=== PATIENT | female | born 1990 | race Caucasian/White ===

== ENCOUNTER 2021-08-29 22:40 | Emergency (ER) | payer BC, SELFPAY ==
--- NOTE | ~2021-08-29 | XR_ITS ---
XR chest 2V DATE: 08/30/2021 00:09 INDICATION: Chest pain TECHNIQUE: PA and lateral views COMPARISON: None FINDINGS: Normal heart size. No hilar or mediastinal enlargement. No pulmonary infiltrate or consolid ation, pleural effusion or pulmonary vascular congestion or pneumothorax. IMPRESSION: Negative Reviewed, dictated and finalized at location A. IMPRESSION: Negative
--- NOTE | 2021-08-29 22:42 | ECG_ITS ---
Measurements Intervals [place] Rate: 62 P: 43 NH: 227 QRS: 60 QRSD: 112 T: 14 QT: 425 QTc: 434 Interpretive Statements SINUS RHYTHM WITH FIRST DEGREE AV BLOCK INTRAVENTRICULAR CONDUCTION DELAY BORDERLINE T WAVE ABNORMALITY- ANTERIOR LEADS BORDERLINE ECG Electronically Signed On 08-30-2021 6:21:18 CDT by Javier Braden D.O.
[2021-08-29 22:53] VITALS: BP 135/70; PULSE 68; RESP 17; TEMP 36.6; O2SAT 99
[2021-08-29 23:35] VITALS: PULSE 64; RESP 13; O2SAT 99
[2021-08-29 23:45] VITALS: PULSE 63; RESP 20; O2SAT 97
[2021-08-29] MEDS: ASPIRIN 81 MG CHEWABLE TABLET 324 MG PO (23:48)
--- NOTE | 2021-08-29 23:58 | ED.GENADULT ---
HPI - General Adult General Chief complaint: Unspecified <NATALIYA Huang Last Filed: 08/30/21 03:24> Stated complaint: pain to right shoulder <NATALIYA uHang Last Filed: 08/30/21 03:24> Time Seen by Provider: 08/29/21 23:33 <NATALIYA Huang Last Filed: 08/30/21 03:24> Source: patient <NATALIYA Huang Last Filed: 08/30/21 03:24> Mode of arrival: EMS <NATALIYA Huang Last Filed: 08/30/21 03:24> Limitations: no limitations <NATALIYA Huang Last Filed: 08/30/21 03:24> History of Present Illness HPI narrative: This is a 30-year-old female that presents to the emergency department for right shoulder pain that started just prior to arrival. 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 She was at work lifting heavy boxes when the pain started. She thought maybe she strained a muscle. Reports that the pain seemed pretty constant. It started to remind her of when she had her previous heart attack, although the pain at that time was in her left shoulder. Reports some mild chest tightness. 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 Denies shortness of breath. <NATALIYA Huang Last Filed: 08/30/21 03:24> Related Data Home medications: Home Medications Medication Instructions Recorded Confirmed digoxin 125 mcg (0.125 mg) tablet 125 mcg PO DAILY 08/29/21 diltiazem HCl 240 mg capsule,24 240 mg PO DAILY 08/29/21 hr,extended release flecainide 50 mg tablet 50 mg PO Q12H 08/29/21 lamotrigine 200 mg tablet 200 mg PO DAILY 08/29/21 (Lamictal) lithium carbonate 600 mg capsule 600 mg PO BID 08/29/21 olanzapine 20 mg tablet (Zyprexa) 25 mg PO DAILY 08/29/21 prazosin 5 mg capsule 7 mg PO QPM 08/29/21 <NATALIYA Huang Last Filed: 08/30/21 03:24> Allergies/adverse reactions: Allergies Allergy/AdvReac Type Severity Reaction Status Date / Time hydromorphone [From Dilaudid] Allergy Anaphylaxis Verified 08/29/21 22:57 morphine Allergy Anaphylaxis Verified 08/29/21 22:57 <Marie Melvin PA-C - Last Filed: 08/30/21 03:24> Review of Systems Review of Systems: CONSTITUTIONAL: Denies fever CARDIOVASCULAR: Reports chest pain. Denies edema. RESPIRATORY: Denies dyspnea. <Marie Melvin PA-C - Last Filed: 08/30/21 03:24> All systems reviewed & are unremarkable except as noted in HPI and below <Marie Melvin PA-C - Last Filed: 08/30/21 03:24> PMFSH Past Medical History Medical History: Medical History (Updated 08/30/21 @ 02:35 by Marie Melvin PA-C) History of bipolar disorder History of coronary artery disease <Marie Melvin PA-C - Last Filed: 08/30/21 03:24> Social History Social History: Social History (Updated 08/30/21 @ 00:03 by Marie Melvin PA-C) Smoking status: Never smoker <Marie Melvin PA-C - Last Filed: 08/30/21 03:24> Exam Narrative: GENERAL: Well-appearing, well-nourished, and in no acute distress. HEAD: Normocephalic, atraumatic. EYES: EOMI. CHEST: Clear to auscultation. No respiratory distress. No wheezes rales or rhonchi HEART: Regular rate and rhythm. No murmur heard. Normal peripheral pulses. EXTREMITIES: Normal range of motion. No edema. SKIN: Warm, dry, no rash. NEURO: No focal deficits. Alert and oriented x3. PSYCH: Normal mood and affect <Marie Melvin PA-C - Last Filed: 08/30/21 03:24> Course ADVANCED PRACTICE NURSE/PA Physician Supervision For this patient encounter, I reviewed the ADVANCED PRACTICE NURSE or PA documentation, treatment plan, and medical decision making <Austin Mueller MD - Last Filed: 08/30/21 04:44> Vital Signs Vital signs: Vital Signs Temperature 97.9 F 08/29/21 22:53 Pulse Rate 68 08/29/21 22:53 Respiratory Rate 17 08/29/21 22:53 Blood Pressure 135/70 08/29/21 22:53 Pulse Oximetry 99 08/29/21 22:53 Oxygen Delivery Room Air 08/29/21 22:53 Temperature 97.9 F 08/29/21 22:53 Pulse Rate 67 08/30/21 03:38 Respirator
[2021-08-30] VITALS (17 sets, daily range): BP systolic 118–144; BP diastolic 59–78; PULSE 60–67; RESP 15–21; O2SAT 96–100
[2021-08-30 00:28] LABS: Basophils Absolute Auto 0.1 K/mm3 (0.0-0.1); Basophils Percent Auto 0.8 % (0.2-1.2); Eosinophils Absolute Auto 0.3 K/mm3 (0-0.3); Eosinophils Percent Auto 2.1 % (0-4.4); Hematocrit 37.5 % (37.0-47.0); Hemoglobin 11.7 g/dL (12.0-15.0); Immature Granulocyte Absolute 0.03 K/mm3 (0.00-0.031); Immature Granulocyte Percent A 0.2 % (0-0.5); Lymphocytes Absolute Auto 3.44 K/mm3 (0.9-3.2); Lymphocytes Percent Auto 25.2 % (18.3-44.2); Mean Corpuscular HGB Conc 31.2 g/dl (32-36); Mean Corpuscular Volume 86.6 fl (80-100); Mean Platelet Volume 9.4 fl (7.4-10.4); Monocytes Absolute Auto 0.8 K/mm3 (0.1-0.6); Monocytes Percent Auto 5.6 % (2.6-8.5); Neutrophils Percent Auto 66.1 % (45.5-73.1); Platelet Count Result 391 k/mm3 (150-375); Red Blood Count 4.33 M/mm3 (4.2-5.4); Red Cell Distribution Width 14.2 % (11.5-14.5); White Blood Count 13.7 K/mm3 (4.5-10.0)
[2021-08-30 00:37] LABS: Alanine Aminotransferase 10 U/L (6-35); Albumin Level 4.3 g/dL (3.5-5.1); Alkaline Phosphatase 66 U/L (38-126); Anion Gap 4 mmol/L (8-16); Aspartate Amino Transferase 17 U/L (14-36); Bilirubin,Total 0.2 mg/dL (0.2-1.3); Blood Urea Nitrogen 7 mg/dL (7-17); Carbon Dioxide 26 mmol/L (22-30); Chloride 107 mmol/L (98-107); Estimated CRCL calculation 110 ml/min; Estimated Glomerular Filt Rate > 60; Glucose 86 mg/dL (65-110); Lipase 38 U/L (23-300); Potassium 3.6 mmol/L (3.4-5.0); Sodium 137 mmol/L (137-145)
[2021-08-30] MEDS: ACETAMINOPHEN 500 MG TABLET 1000 MG PO (00:40)
[2021-08-30 00:44] LABS: INR 1.2; Prothrombin Time 14.6 Seconds (11.1-14.7)
[2021-08-30 00:45] LABS: Partial Thromboplastin Time 34.8 SECONDS (22.3-36.8)
[2021-08-30 00:48] LABS: Troponin I < 0.012 ng/mL (0.000-0.034)
[2021-08-30 01:03] LABS: D Dimer 0.22 ug/mL (<0.48)
[2021-08-30 01:05] LABS: SARS-CoV-2 RNA PCR Negative
[2021-08-30 03:16] LABS: Troponin I < 0.012 ng/mL (0.000-0.034)
== END 2021-08-30 03:36 | disposition home or self-care (01) ==
PROVIDERS: Physician Assistant; Emergency Provider Emergency Medicine
DX: M25.511 Pain in right shoulder (principal); Z20.822 Contact with and (suspected) exposure to COVID-19; I25.10 Atherosclerotic heart disease of native coronary artery without angina pectoris; I25.2 Old myocardial infarction; F31.9 Bipolar disorder, unspecified; I44.0 Atrioventricular block, first degree; I45.9 Conduction disorder, unspecified; R94.31 Abnormal electrocardiogram [ECG] [EKG]
CPT/HCPCS: 36415; 71046; 80053; 83690; 84484; 85025; 85380; 85610; 85730; 93005; 99284; A9270; C9803; U0003; U0005

== ENCOUNTER 2024-05-13 14:32 | Emergency (ER) | payer OTHER, SELFPAY ==
[2024-05-13] VITALS (7 sets, daily range): BP systolic 123–156; BP diastolic 73–93; PULSE 73–91; RESP 12–16; TEMP 37.2; O2SAT 98–99
--- NOTE | ~2024-05-13 | CT_ITS ---
EXAMINATION: CT brain wo con DATE: 05/13/2024 16:02 INDICATION: headache . TECHNIQUE: Computed tomography (CT) of the head was performed without intravenous contrast. The mA wa s adjusted according to patient size. Iterative reconstruction technique was employed. The dose-lengt h product was 681.00 mGy-cm. COMPARISON: None. FINDINGS: No acute intracranial hemorrhage or extra-axial fluid collection. No hydrocephalus, mass, or herniation. No acute ischemic infarct. Unremarkable dural venous sinus attenuation. No acute osseous abnormality. Mild right mastoid fluid, the remaining aerated spaces are clear. Right posterior parietal MOBILE PHLEBOTOMIST shunt, tip terminating near the midline in the right lateral ventricle IMPRESSION: No acute intracranial process. Reviewed, dictated and finalized at location [facility].
--- OUTSIDE RECORDS SUMMARY | 2024-05-13 14:34 | XMS_ITS ---
Author Organization [employer] Address [address] [place] [address] Care Team Providers Care Ethyl Blender Name Role Phone Migration, Provider Unavailable Unavailable Allergies Allergen (clinical drug ingredient) Drug/Non Drug Allergy documented on EMR Reaction Allergy Type Onset Date Status acetaminophen Acetaminophen Unknown Drug Allergy Active oxycodone oxyCODONE HCl Unknown Drug Allergy Act kevyn Sulfanilamide GI problems Drug Allergy A ctive morphine Morphine Pulmonary toxicity Drug Allergy Active REASON FOR VISIT EMR-Nabil Medications Medication SIG (Take, Route, Frequency, Duration) Notes Start Date End Date Status Augmentin 500-125 MG take 1 tablet by or al route every 12 hours Oral Active Singulair 4 MG 1 tablet orally daily Oral Active ZyPREXA 20 MG take 1 tablet by ora l route every day Oral Active Premarin 1.25 MG take 2 tablets by or al route twice a day for 14 days Oral 11/11/2017 Active Provera 10 MG take 2 tablet by ora l route every day Oral 11/03/2017 Active Diflucan 150 MG take 1 tablet by ora l route once, may repeat in 72 hours Oral 08/06/2019 Active HYDROcodone-Acetaminophen 5-325 MG take 1 tablet by oral route every 6 hours as needed for pain Oral 01/04/2018 Active LaMICtal 200 MG take 1 tablet by ora l route every day Oral Active Nystatin 599674 UNIT/GM apply by topical route 4 times every day to the affected area(s) External 08/08/2019 Active Prazosin HCl 1 MG take 1 capsule by or al route qhs Oral Active Cymbalta 60 MG take 1 capsule by or al route every day Oral Active Cardizem 30 MG take 1 tablet by ora l route 2 times every day Oral Active clonazePAM 1 MG take 1 tablet by ora l route 3 times every day Oral Active Encounters Encounter Location Date Provider Diagnosis [facility]von[facility] [address] [place], [place] [id number] 11/27/2023 Provider Migration Plan Of Treatment No Information Progress Notes * Ashlee PAULDOB:1990 (33 yo F)Acc No.[id number]:11/27/2023 Patient: Ashlee RODGERS :1990 A ge:33 Y S ex:Female Address:[address] [place], [address] Subjective: * Chief Complaints: * E MR-Nabil * 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 C ytology result: N egative cytology. L ast Mammo: n ever. L ast DEXA: n ever. L ast WWE 2 [id number].? * OB History: Jesica freeman Authorization : : Date: 06/20/2007 [place] Weeks: 34 Sex: F Weight(lbs): 6lbs15 Delivery Type: Vaginal OB Problems: hemorrhage after labor/undiagnosed pre-eclampsia Problems: healthy Living: Yes . * Surgical History: * Hospitalization/Major Diagno stic Procedure: * Family History: M igrated Family History: : Cancer: M. aunt--cervical CA,cousins with dysplasia, Diabetes: none, REEL MAN Problems: mom prolapse 1994, Heart Disease: none, Hyperlipidemia: father, Hypertension: none, Father Living, Father Health: good, Mother Living, Mother Health: good, Siblings Living#: 3, Siblings #: 0. * Social History: M igrated Social History: M igrated Social History: Alchohol: no, Smoking: <10/day, Diet: healthy, Drugs: none, Emotional Problems: bipolar, Exercise: walks, Life Situation Chk: 0, PSE Abuse: feels safe at home. * Medications: T akingAugmentin 500-125 MG Tablet take 1 tablet by oral route every 12 hours Oral Cardizem 30 MG Tablet take 1 tablet by oral route 2 times every day Oral clonazePAM 1 MG Tablet take 1 tablet by oral route 3 times every day Oral Cymbalta 60 MG Capsule Delayed Release Particles take 1 capsule by oral route every day Oral Diflucan 150 MG Tablet take 1 tablet by oral route once, may repeat in 72 hours Oral HYDROcodone-Acetaminophen 5-325 MG Tablet take 1 tablet by oral route every 6 hours as needed for pain Oral LaMICtal 200 MG Tablet take 1 tablet by oral route every day Oral Nystatin 222455 UNIT/GM Cream apply by topical route 4 times every day to the affected area(s) External Prazosin HCl 1 MG Capsule take 1 capsule by oral route qhs Oral Premarin 1.25 MG Tablet take 2 tablets by oral route twice a day for 14 days Oral Provera 10 MG Tablet take 2 tablet by oral route every day Oral Singulair 4 MG Tablet Chewable 1 tablet orally daily Oral ZyPREXA 20 MG Tablet take 1 tablet by oral route every day Oral Taking Augmentin 500-125 MG Tablet take 1 tablet by oral route every 12 hours Oral Taking Cardizem 30 MG Tablet take 1 tablet by oral route 2 times every day Oral Taking clonazePAM 1 MG Tablet take 1 tablet by oral route 3 times every day Oral Taking Cymbalta 60 MG Capsule Delayed Release Particles take 1 capsule by oral route every day Oral Taking Diflucan 150 MG Tablet take 1 tablet by oral route once, may repeat in 72 hours Oral Taking HYDROcodone-Acetaminophen 5-325 MG Tablet take 1 tablet by oral route every 6 hours as needed for pain Oral Taking LaMICtal 200 MG Tablet take 1 tablet by oral route every day Oral Taking Nystatin [id number] UNIT/GM Cream apply by topical route 4 times every day to the affected area(s) External Taking Prazosin HCl 1 MG Capsule take 1 capsule by oral route qhs Oral Taking Premarin 1.25 MG Tablet take 2 tablets by oral route twice a day for 14 days Oral Taking Provera 10 MG Tablet take 2 tablet by oral route every day Oral Taking Singulair 4 MG Tablet Chewable 1 tablet orally daily Oral Taking ZyPREXA 20 MG Tablet take 1 tablet by oral route every day Oral * Allergies: A cetaminophen: Unknown - AllergyoxyCODONE HCl: Unknown - AllergySulfanilamide: GI problems - AllergyMorphine: Pulmonary toxicity - Allergy Objective: * Vitals: * Physical Examination: Assessment: Plan: * Treatment: * Procedure Codes: * * Date:
--- OUTSIDE RECORDS SUMMARY | 2024-05-13 14:34 | XMS_ITS | Clinical Summary ---
Author Organization [facility] Address [address] [place] [address] Care Team Providers Care Lumber Kiln Operator Name Role Phone Brando Maya MD Unavailable [phone] Van Sosa MD Unavailable [phone] Alexus Kirkland MD Unavailable Unavailable June Waldron MD Primary Care Provider [phone] Zuri García MD Unavailable [phone] Merlin Garibay MD Unavailable Source Comments [facility],non-owned Affiliates and Associated Physician Practices is amultiple site organization consisting of ambulatory clinics and hospital sitesin [place], [place], [place] and [place]. This disclosure is being madepursuant to the Care Everywhere program and may not contain all information available regarding this patient. Last updated 17.[facility] Allergies Active Allergy Reactions Criticality Noted Date Comments Hydromorphone Anaphylaxis High 07/01/2020 Metoprolol GI Discomfort 07/01/2020 Morphine Anaphylaxis High 07/01/2020 Oxycodone-Acetaminophen Other,Nausea and /or Vomiting Low 07/01/2020 Pt stated that she was told she could not have it. Papaver Anaphylaxis High 02/13/2023 Papaveraceae Anaphylaxis High 05/05/2023 Sulfamethoxazole W-Trimethoprim GI Discomfort 07/01/2020 Sulfanilamide GI Discomfort 04/16/2024 Medications * Be aware that medications may not be up to date on this document. Alwaysverify current medications with the patient. Medication Sig Dispensed Refills Start Date End Date Status OLANZapine (ZYPREXA) 20 MG tablet Take 1 (one) tablet by mouth once daily 1 Active lamoTRIgine (LAMICTAL) 200 MG tablet Take 1 (one) tablet by mouth once daily 1 Active prazosin (MINIPRESS) 5 MG capsule Take 1 (one) capsule by mouth once daily 1 Active dilTIAZem (CARDIZEM) 60 MG tablet Take 1 (one) tablet by mouth once daily as needed 30 tablet 4 1 Active OLANZapine (ZYPREXA) 5 MG tablet Take 1 (one) tablet by mouth once daily 1 Active prazosin (MINIPRESS) 1 MG capsuleIndication s:Migraine with status migrainosus, not intractable, unspecified migraine type Take 2 (two) capsules by mouth at bedtime With 5 mg tab for total 7 mg daily 1 Active buPROPion SR 12hr (WELLBUTRIN-SR) 150 MG tablet TAKE 1 TABLET BY MOUTH ONCE DAILY IN THE MORNING 2 Active Dilt-XR 240 MG capsule TAKE 1 CAPSULE BY MOUTH ONCE DAILY IN THE MORNING. APPOINTMENT REQUIRED FOR FUTURE REFILLS 90 capsule 3 2 Active tiZANidine (Zanaflex) 4 MG tabletIndications :Migraine with status migrainosus, not intractable, unspecified migraine type TAKE 1 TABLET BY MOUTH EVERY 8 HOURS NEEDED FOR MUSCLE SPASM 90 tablet 3 Active Additional Information Patient not taking.Reported on 06/20/2023 propranolol (Inderal) 20 MG tabletIndications :Migraine with status migrainosus, not intractable, unspecified migraine type TAKE 1 TABLET BY MOUTH TWICE DAILY FOR MIGRAINE HEADACHES 60 tablet 3 Active Additional Information Patient not taking.Reported on 06/20/2023 pantoprazole EC (Protonix) 40 MG tabletIndications :Gastroesophageal Reflux Disease Take 1 (one) tablet by mouth daily before breakfast Reasons: Gastroesophageal Reflux Disease 30 tablet 4 3 Active acetaZOLAMIDE (Diamox) 250 MG tablet Take 4 (four) tablets by mouth 2 times daily 3 Active amphetamine-dextr oamphetamine (Adderall) 20 MG tablet Take 1 (one) tablet by mouth 2 times daily Active folic acid (Folvite) 1 MG tablet Take 1 (one) tablet by mouth once daily 3 Active famotidine (Pepcid) 40 MG tablet Take 1 (one) tablet by mouth 2 times daily Active topiramate (Topamax) 50 MG tablet Take 1 (one) tablet by mouth 2 times daily 3 Active vitamin D, ergocalciferol, (Drisdol) 1.25 MG (28044 UT) capsuleIndication s:Vitamin D deficiency Take 1 capsule by mouth once a week 12 capsule 4 Active haloperidol (Haldol) 5 MG tablet TAKE 1 TABLET BY MOUTH TWICE DAILY FOR 9 DAYS 4 Active fluticasone propionate (Flonase) 50 MCG/ACT nasal spray [place] 2 (two) sprays into each nostril once daily 16 g 4 Active ofloxacin (Floxin) 0.3 % otic solution Instill 5 (five) drops into both ears 2 times daily 5 mL 4 Active cyanocobalamin (Vitamin B-12) 500 MCG tablet Take 1 tablet by mouth once daily 90 tablet 1 4 Active fluconazole (Diflucan) 150 MG tabletIndications :Vaginal yeast infection Take two tablets by moutn once 2 tablet 4 Active dicyclomine (Bentyl) 20 MG tabletIndications :Abdominal Cramps Take 1 (one) tablet by mouth 4 times daily as needed Reasons: Cramping Pain in the Abdomen 120 tablet 1 4 Active pregabalin (Lyrica) 75 MG capsule Take 1 (one) capsule by mouth 2 times daily 60 capsule 5 Active lithium carbonate (Eskalith) 300 MG capsule TAKE ONE CAPSULE BY MOUTH AT 8 AM AND ONE AT 2PM DIRECTED 5 Active amoxicillin-clavu lanate (Augmentin) 500-125 MG tablet take 1 tablet by oral route every 12 hours Oral Active clonazePAM (KlonoPIN) 1 MG tablet take 1 tablet by oral route 3 times every day Oral Active montelukast (Singulair) 4 MG chew tablet 1 tablet orally daily Oral Active nitrofurantoin monohyd macro crystals (Macrobid) 100 MG capsule TAKE 1 CAPSULE BY MOUTH TWICE DAILY WITH MORNING MEAL AND WITH EVENING MEAL 4 Active ondansetron, disintegrating, (Zofran ODT) 4 MG tablet Take 1 (one) tablet by mouth every 8 hours as needed 5 Active prochlorperazine (Compazine) 10 MG tablet Take 1 (one) tablet by mouth every 6 hours as needed 5 Active traZODone (Desyrel) 50 MG tablet TAKE 1/2 TO 1 (ONE-HALF TO ONE) TABLET BY MOUTH AT BEDTIME NEEDED FOR 30 DAYS 5 Active docusate sodium (Colace) 100 MG capsule Take 1 (one) capsule by mouth 2 times daily 5 Active LORazepam (Ativan) 0.5 MG tablet TAKE 1 TABLET BY MOUTH THREE TIMES DAILY NEEDED FOR 30 DAYS 5 Active haloperidol (Haldol) 20 MG tablet Take 1 (one) tablet by mouth at bedtime 5 Active flecainide (Tambocor) 50 MG tabletIndications :Paroxysmal atrial fibrillation (HCC) Take 1 (one) tablet by mouth once daily 90 tablet 3 5 Active digoxin (Lanoxin) 0.125 MG tabletIndications :PAF (paroxysmal atrial fibrillation) (HCC) Take 1 (one) tablet by mouth once daily PLEASE MAKE APPOINTMENT FOR FUTURE REFILLS 90 tablet 3 5 Active lithium CR (ESKALITH CR) 450 MG tablet Take 600 mg by mouth every 12 hours 04/16/19 Discontinu ed(List Clean-Up) LORazepam (ATIVAN) 0.5 MG tablet Take 1 (one) tablet by mouth 2 times daily as needed 2 04/16/19 Discontinu ed(List Clean-Up) DULoxetine HCl 40 MG Take 1 capsule by mouth once daily 4 04/16/19 Discontinu ed(List Clean-Up) haloperidol (Haldol) 10 MG tablet Take 1 (one) tablet by mouth once daily 4 05/02/19 25 Discontinu ed(List Clean-Up) digoxin (Lanoxin) 0.125 MG tabletIndications :PAF (paroxysmal atrial fibrillation) (HCC) Take 1 (one) tablet by mouth once daily PLEASE MAKE APPOINTMENT FOR FUTURE REFILLS 30 tablet 2 4 05/02/19 25 Discontinu ed(Reorder ) flecainide (Tambocor) 50 MG tabletIndications :Paroxysmal atrial fibrillation (HCC) Take 1 (one) tablet by mouth once daily 30 tablet 1 5 05/02/19 25 Discontinu ed(Reorder ) Active Problems Problem Noted Date Diagnosed Date Paroxysmal atrial fibrillation 05/01/2024 Bacterial folliculitis 06/20/2023 Otalgia, left ear 06/20/2023 Dysfunction of Eustachian tube, bilateral 2023 Papilledema associated with increased intracrani al pressure 12/16/2022 12/26/2022 S/P GRADING MACHINE OPERATOR shunt 12/12/2022 06/20/2023 Visual field defect of both eyes 11/24/2022 12/26/2022 SOB (shortness of breath) 03/25/2022 Vitamin D deficiency 03/23/2022 Essential hypertension 09/13/2021 Otosclerosis of both ears 10/20/2020 IIH (idiopathic intracranial hypertension) 10/20 BMI 39.0-39.9,adult 10/20/2020 Bipolar 1 disorder 10/20/2020 Family history of skin cancer 10/20/2020 Atypical mole 10/20/2020 Hearing loss of right ear 10/20/2020 Precordial chest pain 10/16/2020 Nicotine dependence 10/12/2020 Overview (12/25/2020): Last Assessment & Plan: Pt smokes 7 cigarettes a day Requires nicoderm patch for cravings in hospital Chest pain 10/12/2020 Overview (12/25/2020): Last Assessment & Plan: Sustained episode of tachycardia longer than baseline episode Pt currently comfortable without any CP Hirschsprung's disease 07/01/2020 H/O total hysterectomy 07/01/2020 History of loop recorder 07/01/2020 Helicobacter pylori gastrointestinal tract infec tion 10/08/2013 Nausea with vomiting 10/08/2013 Abdominal pain 10/08/2013 Resolved Problems Problem Noted Date Diagnosed Date Resolved Date Arrhythmia 10/12/2020 05/01/2024 Overview (12/25/2020): Last Assessment & Plan: Episodes of sustained tachycardia less frequent since ablation in 2019 Requires home medication flecainide, digoxin, diltiazem for maintenance Significant cardiac history with MIs starting at age 16 Bipolar 1 disorder 10/12/2020 Overview (12/25/2020): Last Assessment & Plan: Aline ER 450 mg Paroxysmal atrial fibrillation 07/01/2020 05/01/2024 CAD in [place] artery 07/01/2020 022 Constipation 10/08/2013 01/22/2021 Encounters Date Type Department Care Team Description 05/01/2024 11:45 AM DIRECTOR EQUIPMENT Office Visit [facility] [address] [place] [address] Brando Maya MD Paroxysmal atrial fibrillation (HCC) (Primary Dx); PAF (paroxysmal atrial fibrillation) (HCC); Essential hypertension 04/17/2024 Refill [facility] [address] [place] [address] Denise Cardona ROOM SERVICE BELLHOP-RESERVOIR CARETAKER Refill Request 04/10/2024 Telephone [facility] - Internal Medicine [address] [place] [address] [address] [place] [phone] June Waldron MD Medication Problem 03/30/2024 Refill [facility] [address] [place] [address] Denise Cardona, ROOM SERVICE BELLHOP-RESERVOIR CARETAKER Refill Request; Scheduling 03/01/2024 Telephone [facility] - Internal Medicine [address] [phone] June Waldron MD Scheduling from Last 3 Months Immunizations Name Administration Dates Next Due COVID PFIZER BIVALENT 12Y+ 30mcg/0.3ML 2 Covid Moderna primary monova lent 12+ yr 0.5mL 05/29/2020,05/01/2020 DTP 05/01/1992, 2,01/17/1991,11/16 HEP B VACCINE, PED/ADOL 08/15/2008,12/13/2007 HIB-HAEMOPHILUS INFLUENZAE B CONJUGATE VACCINE 01/21/1992,04/20/1991,01/17/1991,11/16 Human Papilloma Virus Chasity valent Vaccine 08/15/2008,10/07/2006 INFLUENZA VACCINE, CELL CULT URE, QUADR. (FLUCELVAX QUADRIVALENT; 6MO+) (CCIIV4) 11/24/2021 MENINGOCOCCAL CONJUGATE (MCV4P) 10/07/2006 MMR 01/21/1992 PNEUMOCOCCAL PCV20 CONJ VAC IM 04/16/2022 PNEUMOCOCCAL PPSV23 10/20/2020 POLIO OPV 05/01/1992, 2,01/17/1991,11/16 TD (AGE 7-ADULT) 09/08/2004 TDAP (7yrs+) 10/19/2021 Family History Medical History Relation Name Comments Cancer - Other Maternal Aunt cervical can cer Cancer - Colon Maternal Grandfather Hearing Loss - Congenital Maternal Grandfather None Known Maternal Grandmother Hearing Loss - Unspecified Mother Cancer - Breast Other great mat GM and great aunt Cancer - Colon Other Alcohol abuse Paternal Grandfather Cancer - Ovarian Paternal Grandmother Eating Disorders Sister 1 CAD (Coronary Artery Disease) Neg Hx CVA Neg Hx Relation Name Status Comments Father Alive Maternal Aunt Maternal Grandfather Alive Maternal Grandmother Alive Mother Alive Other Paternal Grandfather Paternal Grandmother Alive Sister 1 Alive Sister 2 Alive Sister 3 Alive Sister 4 Alive Social History Tobacco Use Types Packs/Day Years Used Date Smoking Tobacco: Every Day Cigarettes 0.3 10 Smokeless Tobacco: Never Tobacco Cessation:Ready to Q uit: Not Asked; Counseling Given: Not Answered Alcohol Use Standard Drinks/Week Comments Yes 0 (1 standard drink = 0.6 oz pur e alcohol) rare wine PHQ-2 Answer Date Recorded PHQ2 TOTAL SCORE 0 07/02/2022 Sex and Gender Information Value Date Recorded Sex Assigned at Not on file Gender Identity Not on file Sexual Orientation Not on file Last Filed Vital Signs Vital Sign Reading Time Taken Comments Blood Pressure 120/72 05/01/2024 11:41 AM DIRECTOR EQUIPMENT Pulse 84 05/01/2024 11:41 AM DIRECTOR EQUIPMENT Temperature 36.1 C (96.9 F) 06/20/2023 12:45 PM CDT Respiratory Rate - - Oxygen Saturation 99% 06/20/2023 12: 45 PM CDT Inhaled Oxygen Concentration - - Weight 108.1 kg (238 lb 6.4 oz) 025 11:41 AM DIRECTOR EQUIPMENT Height 165.1 cm (5' 5 ) 06/20/2023 12:4 5 PM CDT Body Mass Index 39.67 06/20/2023 12:45 PM CDT Plan of Treatment Upcoming Encounters Date Type Department Care Team (Late st Contact Info) Description 05/28/2024 11:00 AM CDT Office Visit [facility] - Internal Medicine [address] [place] [phone] Tiera Montes, ROOM SERVICE BELLHOP-RESERVOIR CARETAKER [address] [place] [phone] 05/01/2025 11:30 AM DIRECTOR EQUIPMENT Office Visit [facility] [address] [place] [address] Brando Maya MD [address] [place] [address] [facility] [address] [place] [address] Health Maintenance Due Date Last Done Comments HEPATITIS C SCREENING 09/07/2008 HEPATITIS B VACCINE (3 of 3 - 3-dose series) 10/10/2008 08/15/2008, 12/13/2007 HPV VACCINE (3 - 3-dose series) 11/07/2008 08/15/2008, 10/07/2006 COVID-19 VACCINE (4 - 2024-25 season) 2023 11/24/2021, 05/29/2020, 05/01/2020 INFLUENZA VACCINE (#1) 2023 11/24/2021 DTAP/TDAP/TD VACCINES (7 - Td or Tdap) 10/20/2031 10/19/2021, 09/08/2004, 05/01/1992, Additional history exists ZOSTER VACCINE (1 of 2) 2040 HIB VACCINE Completed 01/21/1992, 04/01, 01/17/1991, Additional history exists MENINGOCOCCAL GROUPS A/C/Y/W VACCINE Completed 10/07/2006 PNEUMOCOCCAL VACCINE Completed 04/16/2022, 10/21/19 21 HIV SCREENING Completed 11/22/2022 MENINGOCOCCAL (Group B) VACCINE SHARED DECISION-MAKING Aged Out No longer eligible based on patient's age to complete this topic PAP SMEAR Discontinued Procedures Procedure Name Priority Date/Time Associated Diagnosis Comments EKG 12-LEAD Routine 05/01/2024 1:03 PM DIRECTOR EQUIPMENT Paroxysmal atrial fibrillation (HCC) from Last 3 Months Care Teams Lumber Kiln Operator Relationship Specialty Start Date End Date June Waldron MD [address] [place] [address] PCP - General Internal Medicine 07/30/22 Brando Maya MD [address] [facility] [address] [place] [address] Cardiovascular Disease 07/01/20 Van Sosa MD [facility] [facility] [place] [address] [place] [address] Electrophysiology 07/14/20 Alexus Kirkland MD [facility] [facility] [place] [address] [place] [address] Obstetrics and Gynecology 07/14/20 Zuri García MD [address] [place] [address] Referring Physician Neurology 06/20/23 Merlin Garibay MD [address] [facility] [address] [place] [address] Neurological Surgery 06/20/23
--- OUTSIDE RECORDS SUMMARY | 2024-05-13 14:34 | XMS_ITS | Referral Summary ---
Author Organization [facility] Address [address] [place] [address] Care Team Providers Care Customer Services Manager Name Role Phone Brando Maya MD Unavailable [phone] June Waldron MD Primary Care Provider + Merlin Garibay MD Unavailable [phone] Jonna Schmitt OD Unavailable [phone] Adelaide Davies MD Unavailable Van Sosa MD Unavailable [phone] Suresh Lynn NP Unavailable [phone] Encounters Date Type Department Care Team Description 04/05/2024 Telephone [facility] Ophthalmology [address] [facility] [address] [place] [phone] Zuri García MD 03/29/2024 Telephone [facility] Ophthalmology [address] [facility] 6th [place] [address] James Mota MD PhD 03/28/2024 Telephone [facility] Ophthalmology [address] [facility] [address] [place] [address] Zuri García MD 03/27/2024 Telephone [facility] Ophthalmology [address] [place] [address] 1st [place] [address] Zuri García MD 03/27/2024 Telephone [facility] ([facility]) - [facility] ENT [address] [facility] 11th [place] [address] [place] [address] Dinah Harris MS 03/26/2024 Telephone [facility] Ophthalmology [facility] [address] [address] Zuri García MD 03/26/2024 2:10 PM [facility] Imaging Exam [facility] Ophthalmology [address] [place] [phone] 03/26/2024 2:30 PM [facility] Office Visit [facility] Ophthalmology [address] [place] [phone] Zuri García MD Optic atrophy of both eyes (Primary Dx); 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; 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; Idiopathic intracranial hypertension; S/P GIS INSTRUCTOR shunt; Rhinorrhea; Otorrhea, unspecified laterality 03/23/2024 Telephone [facility] Ophthalmology [facility] [place] [address] Zuri García MD Med Management 03/13/2024 Orders Only [facility] Ophthalmology [address] [place] [phone] Zuri aGrcía MD Papilledema due to raised intracranial pressure (Primary Dx); Idiopathic intracranial hypertension; 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; Optic atrophy of both eyes from Last 3 Months Allergies Active Allergy Reactions Criticality Noted Date Comments Hydromorphone Anaphylaxis High 11/21/2022 Opioids - Morphine Analogues Anaphylaxis,Seizures High Reaction: Anaphylaxis, Seizure, Oxycodone-Acetaminophen Anaphylaxis,Seizures High Reaction: Anaphylaxis, Seizure, Sulfamethoxazole-Trimet hoprim Diarrhea,Vomiting Low Reaction: Diarrhea, Vomiting, Medications lamoTRIgine (LaMICtal) 200 mg tablet Take 200 mg by mouth nightly Active LORazepam (ATIVAN) 0.5 mg tablet Take 0.5 mg by mouth 2 (two) times a day as needed 1 Active OLANZapine (ZyPREXA) 20 mg tablet Take by mouth nightly 1 Active OLANZapine (ZyPREXA) 5 mg tablet Take 5 mg by mouth nightly 1 Active prazosin (MINIPRESS) 2 mg capsule Take 2 mg by mouth nightly 1 Active prazosin (MINIPRESS) 5 mg capsule TAKE 1 CAPSULE BY MOUTH ONCE DAILY AT BEDTIME [address] (CYMBALTA) 60 mg capsule Take 1 capsule (60 mg total) by mouth daily 5 capsule 3 Active cyanocobalamin (Vitamin B-12) 500 mcg tablet Take 1 tablet (500 mcg total) by mouth daily 3 Active dicyclomine (BENTYL) 20 mg tablet Take 1 tablet (20 mg total) by mouth 2 (two) times a day 3 Active ergocalciferol (VITAMIN D) 50,000 unit capsule Take 1 capsule (50,000 Units total) by mouth once a week Active erythromycin (ILOTYCIN) ophthalmic ointment Apply 1 Application to right eye 3 (three) times a day 3 Active folic acid (FOLVITE) 1 mg tablet Take 1 tablet (1 mg total) by mouth 2 (two) times a day [address] (PROTONIX) 40 mg EC tablet Take 1 tablet (40 mg total) by mouth daily before breakfast 3 Active lithium 300 mg tablet/capsule Take 1 tablet/capsule (300 mg total) by mouth 2 (two) times a day with meals 60 tablet/capsu le 3 Active oxyCODONE (ROXICODONE) 5 mg immediate release tablet Take 0.5 tablets (2.5 mg total) by mouth every 8 (eight) hours as needed for pain for up to 20 doses 10 tablet 3 Active pregabalin (LYRICA) 75 mg capsuleIndicatio ns:Frequent headaches Take 1 capsule (75 mg total) by mouth 2 (two) times a day 60 capsule 5 4 Active acetaZOLAMIDE ER (DIAMOX SEQUAL) 500 mg capsuleIndicatio ns:Idiopathic intracranial hypertension,Pap illedema due to raised intracranial pressure Take 1 capsule (500 mg total) by mouth 2 (two) times a day 60 capsule 11 5 03/28/19 26 Active topiramate (TOPAMAX) 50 mg tabletIndication s:Idiopathic intracranial hypertension,Du quent headaches Take 1 tablet (50 mg total) by mouth 2 (two) times a day 60 tablet 2 5 Active Active Problems Problem Noted Date Diagnosed Date Idiopathic intracranial hypertension 12/13/2023 Assessment & Plan (12/13/2023 9:25 AM CDT): No active disc edema on exam or OCT today. Persistent headaches, had CT and LP a few days ago with no signs of shunt failure, OP 22. Discussed that symptom of worsened vision could be related to headaches, but no evidence of active IIH at this time. Will discuss with Dr. García and contact if any additional workup recommended prior to visit 12/26/23. Acute intractable headache, unspecified headache type 02/11/2023 Assessment & Plan (02/12/2023 11:45 AM [facility]): Patient presented with headache and L sided vision loss in the setting of idiopathic intracranial Htn with GIS INSTRUCTOR shunt (11/27/22), right eye blindness. Initially code stroke in the ED and neurology recommended NSGY and opthalmology c/s. NSGY & Ophth recommended LP to improve the pressure and to check cell count x2, protein, glucose, bacterial culture and save 1 tube - Migraine cocktail to control headache, such as compazine 10 mg q6h, Benadryl 25 mg PO, 1L IVF q8h PRN, Mg 2g BID PRN, Toradol 15 mg IV q6h PRN. More effective when given together. - Follow-up in the Neuro-Ophthalmology clinic as prior - Follow-up closely with [facility]GY at [facility] for potential revision of GIS INSTRUCTOR shunt - LP with opening pressure 26. CSF with protein 54, nucs 10, glucose 56. Stain with no PMNs, no organisms. - symptoms resolved following LP Vision loss 01/22/2023 Chest pain 10/12/2020 Assessment & Plan (10/12/2020 12:49 PM CDT): Sustained episode of tachycardia longer than baseline episode Pt currently comfortable without any CP Bipolar 1 disorder 10/12/2020 Assessment & Plan (02/12/2023 11:39 AM [facility]): Controlled - Continue home medications: Olanzapine , Lorazepam, [place], Duloxetine Assessment & Plan (10/12/2020 11:13 AM CDT): [place] ER 450 mg Arrhythmia 10/12/2020 Assessment & Plan (10/12/2020 12:48 PM CDT): Episodes of sustained tachycardia less frequent since ablation in 2019 Requires home medication flecainide, digoxin, diltiazem for maintenance Significant cardiac history with MIs starting at age 16 Nicotine dependence 10/12/2020 Assessment & Plan (10/12/2020 12:45 PM CDT): Pt smokes 7 cigarettes a day Requires nicoderm patch for cravings in hospital Abdominal pain 10/08/2013 Nausea with vomiting 10/08/2013 Constipation 10/08/2013 Helicobacter pylori gastrointestinal tract infec tion 10/08/2013 Immunizations Immunization Administration Dates Next Due Tdap 10/19/2021 Social History Tobacco Use Types Packs/Day Years Used Date Smoking Tobacco: Every Day Cigarettes 0.8 22.7 Started: 08/25/2001 Smokeless Tobacco: Never Tobacco Cessation:Ready to Q uit: Not Asked; Counseling Given: Not Answered Alcohol Use Standard Drinks/Week Comments Yes 0 (1 standard drink = 0.6 oz pur e alcohol) rare AUDIT-C Answer Date Recorded Q1: How often do you have a drink containing alc ohol? Never 12/26/2023 Average Number of Drinks Not on file 024 Frequency of Binge Drinking Not on file 11/29 Personal Safety Answer Date Recorded Have you ever been in or are you currently in a harmful physical or emotional relationship or is someone making you feel afraid or unsafe? Denies 02/11/2023 Comments No Sex and Gender Information Value Date Recorded Sex Assigned at Not on file Legal Sex Female 10:58 AM [facility] Gender Identity Not on file Sexual Orientation Not on file Last Filed Vital Signs Vital Sign Reading Time Taken Comments Blood Pressure 133/90 02/12/2023 7:57 AM [facility] Pulse 91 02/12/2023 7:57 AM [facility] Temperature 36.6 C (97.9 F) 02/12/2023 7:57 AM [facility] Respiratory Rate 18 02/12/2023 7:57 AM [facility] Oxygen Saturation 100% 02/12/2023 7:57 AM [facility] Inhaled Oxygen Concentration - - Weight 102 kg (224 lb 12.8 oz) 02/11/2023 10:10 AM [facility] Height 162.6 cm (5' 4.02 ) 02/11/2023 10:[address] Body Mass Index 38.57 02/11/2023 10:10 AM [facility] Plan of Treatment Not on file Medical Devices Implanted Type Area Bond Manager Device Identifier Shelf Expiration Date Model / Serial / Lot Implantable Loop Recorder [employer] Implantable Loop Recorder Chest Stratta Valve Brain Procedures Procedure Name Priority Date/Time Associated Diagnosis Comments OCT, OPTIC NERVE - OU - BOTH EYES Routine 03/26/2024 2:25 PM [facility] Idiopathic intracranial hypertension 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 Average RNFL thickness 55 micrometers. Left Eye Reliability was good. Average RNFL thickness 52 micrometers. Notes RNFL thinning OU (Performed on [employer] OCT) Zuri García MD OPHTH TOMOGRAPHY Final Resu lt * OCT, Retina - OU - Both Eyes (03/26/2024 2:25 PM [facility]) Anatomical Region Laterality Modality Head Other Narrative 03/26/2024 3:51 PM [facility] Right Eye Findings include normal observations. Left Eye Findings include normal observations. Notes Diffuse ganglion cell complex thinning OU, with mean GCC thickness: 44 microns OD, 50 microns OS (on [employer] OCT) Zuri García MD OPHTH TOMOGRAPHY Final Resu lt from Last 3 Months Insurance [employer] OOS [employer] [place] Advance Directives For more information, please contact: [phone] * Full Code (Latest Code Status on File) Date Activated Date Inactivated Comments 02/11/2023 10:47 AM 02/12/2023 7:36 PM * Full Code Date Activated Date Inactivated Comments 01/22/2023 11:26 PM 01/26/2023 7:34 PM Care Teams Customer Services Manager Relationship Specialty Start Date End Date June Waldron MD [address] [place] [address] PCP - General 10/19/21 Brando Maya MD [address] [place] [address] Referring Physician Cardiovascular Disease 10/13/20 Merlin Garibay MD [address] [place] [address] Surgeon Neurosurgery 12/11/22 Jonna Schmitt OD [address] [place] [address] Primary Eye Care Provider Optometry 12/11/22 Adelaide Davies MD [address] [place] [address] Surgeon Ophthalmic Plastic and Reconstructive Surgery 12/24/22 Van Sosa MD [address] [facility] [address] [place] [address] It Risk [employer] Assurance Senior Manager Cardiology 12/28/22 Suresh Lynn NP [address] [facility] [place] [address] [place] [address] Nurse Practitioner Psychiatry 04/05/23
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
--- OUTSIDE RECORDS SUMMARY | 2024-05-13 14:34 | XMS_ITS | Clinical Summary ---
Author Organization [facility] Address [address] [place] [address] Care Team Providers Care Instructor Physical Name Role Phone Brando Maya MD Unavailable June Waldron MD Primary Care Provider + Merlin Garibay MD Unavailable Jonna Schmitt OD Unavailable [phone] Adelaide Davies MD Unavailable Van Sosa MD Unavailable Suresh Lynn NP Unavailable Allergies Active Allergy Reactions Criticality Noted Date Comments Hydromorphone Anaphylaxis High 11/21/2022 Opioids - Morphine Analogues Anaphylaxis,Seizures High Reaction: Anaphylaxis, Seizure, Oxycodone-Acetaminophen Anaphylaxis,Seizures High Reaction: Anaphylaxis, Seizure, Sulfamethoxazole-Trimet hoprim Diarrhea,Vomiting Low Reaction: Diarrhea, Vomiting, Medications lamoTRIgine (LaMICtal) 200 mg tablet Take 200 mg by mouth nightly 1 Active LORazepam (ATIVAN) 0.5 mg tablet Take [...] 02/11/2023 Assessment & Plan (02/12/2023 11:45 AM [employer]): Patient presented with headache and L sided vision loss in the setting of idiopathic intracranial Htn with PAINTER HAND shunt (11/27/22), right eye blindness. Initially code [...] prior - Follow-up closely with NSGY at [facility] for potential revision of PAINTER HAND shunt - LP with opening pressure 26. CSF with protein 54, nucs 10, glucose 56. Stain with no PMNs, no organisms. - symptoms resolved following LP Vision loss 01/22/2023 Chest pain 10/12/2020 Assessment & Plan (10/12/2020 12:49 PM CDT): Sustained episode of tachycardia longer than baseline episode Pt currently comfortable without any CP Bipolar 1 disorder 10/12/2020 Assessment & Plan (02/12/2023 11:39 AM [employer]): Controlled - Continue home medications: Olanzapine , Lorazepam, [place], Duloxetine Assessment & Plan (10/12/2020 11:13 AM CDT): [place] ER 450 mg Arrhythmia 10/12/2020 Assessment & [...] Helicobacter pylori gastrointestinal tract infec tion 10/08/2013 Encounters Date Type Department Care Team Description 04/05/2024 Telephone [facility] [address] [place] [phone] Zuri García MD 03/29/2024 Telephone [facility] [address] [place] [phone] James Mota MD PhD 03/28/2024 Telephone [facility] [address] [place] [address] Zuri García MD 03/27/2024 Telephone [facility] [address] [place] [address] [address] [place] [address] Zuri García MD 03/27/2024 Telephone [facility] - [address] [facility] 11th [place] [address] [place] [address] Dinah Hraris, 03/26/2024 2:30 PM [employer] Office Visit [facility] [address] [facility] [address] [place] [phone] Zuri García MD Optic atrophy of both eyes (Primary Dx); 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; 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; Idiopathic intracranial hypertension; S/P PAINTER HAND shunt; Rhinorrhea; Otorrhea, unspecified laterality 03/26/2024 2:10 PM [employer] Imaging Exam [facility] [address] [place] [phone] 03/26/2024 Telephone [facility] [address] [place] [phone] Zuri García MD 03/23/2024 Telephone [facility] [place] [address] Zuri García MD Med Management 03/13/2024 Orders Only [facility] [address] [place] [phone] Zuri García MD Papilledema due to raised intracranial pressure (Primary Dx); Idiopathic intracranial hypertension; 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; Optic atrophy of both eyes from Last 3 Months Immunizations Immunization Administration Dates Next Due Tdap 10/19/2021 Surgical History Surgery Date Site/Laterality Comments ID [id number] Appendectomy - (Added by Conv) LUMBAR PUNCTURE WO INJECTION , DIAGNOSTIC 12/13/2022 N/A LUMBAR PUNCTURE WO INJECTION , DIAGNOSTIC 11/26/2022 N/A LUMBAR PUNCTURE WO INJECTION , THERAPEUTIC 02/11/2023 N/A LUMBAR PUNCTURE WO INJECTION , DIAGNOSTIC 05/06/2023 N/A LUMBAR PUNCTURE WO INJECTION , DIAGNOSTIC 12/10/2023 N/A Family History Medical History Relation Name Comments Mental illness Father Family histor y of mental disorder - (Added by Conv) Mental illness Mother Family histor y of mental disorder - (Added by Conv) Hypertension Paternal Grandmother Family history of hypertension - (Added by TW Conv) Colon cancer Paternal Great-Grandfather F amily history of colon cancer - (Added by TW Conv) Heart attack Paternal Great-Grandmother F amily history of myocardial infarction - (Added by TW Conv) Hypertension Paternal Great-Grandmother F amily history of hypertension - (Added by TW Conv) Stroke Paternal Great-Grandmother F amily history of cerebrovascular accident - (Added by TW Conv) Mental illness Sister Family histor y of mental disorder - (Added by TW Conv) Relation Name Status Comments Father Mother Paternal Grandmother Paternal Great-Grandfather Paternal Great-Grandmother Sister Social History Tobacco Use Types Packs/Day Years [...] on file Legal Sex Female 10:58 AM [employer] Gender Identity Not on file Sexual Orientation Not on file Obstetrics History Last Filed Vital Signs Vital Sign Reading Time Taken Comments Blood Pressure 133/90 02/12/2023 7:57 AM [employer] Pulse 91 02/12/2023 7:57 AM [employer] Temperature 36.6 C (97.9 F) 02/12/2023 7:57 AM [employer] Respiratory Rate 18 02/12/2023 7:57 AM [employer] Oxygen Saturation 100% 02/12/2023 7:57 AM [employer] Inhaled Oxygen Concentration - - Weight 102 kg (224 lb 12.8 oz) 02/11/2023 10:10 AM [employer] Height 162.6 cm (5' 4.02 ) 02/11/2023 10:[address] Body Mass Index 38.57 02/11/2023 10:10 AM [employer] Plan of Treatment Health Maintenance Due Date Last Done Comments Depression Screening 1990 Hepatitis C Screening 1990 Varicella Vaccines (1 of 2 - 13+ 2-dose series) 09/13/2003 Regular Well Visit/Exam 18-64 2008 HPV Vaccines (3 - 3-dose series) 11/07/2008 08/16/19 09, 10/07/2006 Pneumococcal vaccine <65 (2 of 2 - PCV) 10/20/2021 10/20/2020 Covid-19 Vaccine (3 - 2023-2 5 season) 2023 05/29/2020, 05/01/2020 Influenza Vaccine (#1) 2023 11/24/2021 DTaP/Tdap/Td Vaccine (6 - Td or Tdap) 10/20/2031 10/19/2021, 09/08/2004, 05/01/1992, Additional history exists Hepatitis B Screening Completed 08/15/2008, 008 Medical Devices Implanted Type Area Front Office Spec Device Identifier Shelf Expiration Date Model / Serial / Lot Implantable Loop Recorder [employer] Implantable Loop Recorder Chest Stratta Valve Brain Procedures Procedure Name Priority Date/Time Associated Diagnosis Comments OCT, OPTIC NERVE - OU - BOTH EYES Routine 03/26/2024 2:25 PM [employer] Idiopathic intracranial hypertension 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 Average RNFL thickness 55 micrometers. Left Eye Reliability was good. Average RNFL thickness 52 micrometers. Notes RNFL thinning OU (Performed on [employer]rus OCT) Zuri García MD OPHTH TOMOGRAPHY Final Resu lt * OCT, Retina - OU - Both Eyes (03/26/2024 2:25 PM [employer]) Anatomical Region Laterality Modality Head Other Narrative 03/26/2024 3:51 PM [employer] Right Eye Findings include normal observations. Left Eye Findings include normal observations. Notes Diffuse ganglion cell complex thinning OU, with mean GCC thickness: 44 microns OD, 50 microns OS (on [employer] Cirrus OCT) Zuri García MD OPHTH TOMOGRAPHY Final Resu lt from Last 3 Months Insurance lmbang OOS lmbang OOS [facility] [place] Advance Directives For more information, please contact: [phone] * Full Code (Latest Code Status on File) Date Activated Date Inactivated Comments 02/11/2023 10:47 AM 02/12/2023 7:36 PM * Full Code Date Activated Date Inactivated Comments 01/22/2023 11:26 PM 01/26/2023 7:34 PM Care Teams Instructor Physical Relationship Specialty Start Date End Date June Waldron MD [address] [place] [address] PCP - General 10/19/21 Brando Maya MD [address] [place] [address] Referring Physician Cardiovascular Disease 10/13/20 Merlin Garibay MD [address] [place] [address] Surgeon Neurosurgery 12/11/22 Jonna Schmitt OD [address] [place] [address] Primary Eye Care Provider Optometry 12/11/22 Adelaide Davies MD [address] [place] [address] Surgeon Ophthalmic Plastic and Reconstructive Surgery 12/24/22 Van Sosa MD [address] [facility] [address] [place] [address] Director Of Agronomy Cardiology 12/28/22 Suresh Lynn NP [address] [facility] [address] [place] [address] Nurse Practitioner Psychiatry 04/05/23
--- OUTSIDE RECORDS SUMMARY | 2024-05-13 14:34 | XMS_ITS ---
Author Organization [facility] Address [address] [place] [address] Care Team Providers Care Stockroom Attendant Name Role Phone Suresh Fritz Primary Care Provider [phone] Yen Mace [phone] REASON FOR VISIT CRU Admit Social History Sex Assigned At : Social History Observation Description Sex Assigned At Female PRAPARE Question Answer Notes Date Completed/Updated: 05/11/2024 What is your current housing situation? I do not have housing (staying with others, in a hotel, in a detention, living outside on the street, on a beach, or in a park) Are you worried about losing your housing? Yes What is the highest level of school that you have finished? More than high school What is your current work situation? Oth erwise unemployed but not seeking work (ex. 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 Stress is when someone feels tense, nervous, anxious, or can\t sleep at night because their mind is troubled Very much In the past year have you sp ent more than 2 nights in a row in a care home, longterm, prison center, or juvenile correctional facility? No Are you a refugee? No What country are you from? [place] Do you feel physically and e motionally safe where you currently live? No In the past year, have you b een afraid of your partner or ex-partner? 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 Clinician gathered information regarding historical presentation of mental health and substance use symptoms including withdrawal, HIV Risk assessment, psychiatric hospitalization history and presenting concern. Clinician conducted PHQ9 and CSSRS assessments as well as social drivers of health screening for the purposes of identifying additional service needs. Plan Of Treatment Treatment Notes Assessment Notes Other Clinician met with papo sandoval to assess needs for residential services. Clinician gathered information regarding historical presentation of mental health and substance use symptoms including withdrawal, HIV Risk assessment, psychiatric hospitalization history and presenting concern. Clinician conducted PHQ9 and CSSRS assessments as well as social drivers of health screening for the purposes of identifying additional service needs. Next Appt Details Provider Name:June chen, 05/14/2024 11:00:00 AM, [address], [place], [address], Provider Name:Suresh donnelly, 05/15/2024 01:40:00 PM, [address], [address], Progress Notes * Ashlee PAULDOB:1990 (33 yo F)Acc No.[id number]:05/11/2024 Patient: Ashlee RODGERS Provider: Lilly Mace LCSW :1990 A ge:33 Y S ex:Female Date:05/11/2024 Address:[address] [place] [address] , [facility] Pcp:Suresh Fritz Subjective: * Chief Complaints: * C RU Admit * HPI: P sychiatric Assessment - Current Symptoms: Primary concern today x , Admitting today for MH Stabilization program, ex threw her out over something studpid reports said was a danger to her and her daughter. . Overview of Mental Health Symptoms R eports very anxious and terrified, frequent crying. . History of Psychiatric Hospitalizations M ost recent: taty this wek at [place]. Ex called crisis and said she was suicidal. Reports she was not acutally feeling suicidal. Reports not feeling safe around ex at this time. . History of Psychiatric and Behavioral Health Treatment R eports a long history of mental health care, currently seeing Suresh through [facility]. S ubstance Use: Current Use Patterns n one reported . Substance of Choice n one reported . History of substance use n one reported . Hx of Withdrawal n one reported . H IV Risk Assessment Screening: Sexual Risk Behaviors: 1 . Are you sexually active? (If no skip question 2) N o 2 . Do you engage in sexual activity without protection against STIs? N o HIV/AIDS/Hepatitis Risk Assessment 1 . Have you ever shared needles or equipment for injecting drugs, tattoos, or piercings with others? N o 2 . Have you ever had unprotected sex with someone you think might be infected with an STI or HIV (such as someone who injected drugs, who was diagnoed with or treated for an STI or hepatitis, has had mulitiple sex partners, or who has exchanged sex for drugs or money)? N o 3 . Have you ever had unprotected vaginal or anal intercourse with more than 1 sex partner? N o 4 . Have you ever been diagnosed with or treated for an STI, hepatitis, or tuberculosis? N o 5 . Have you ever had an unexplained fever or illness of unknown cause (not including the common cold)? N o 6 . Have you ever been told that you have an infection related to a weak immune system ? N o 7 . If YES to any of the above (including sexual risk behaviors), have you been tested in the past year for HIV/AIDS and/or Hepatitis C? L ow Risk: The patient did not answer yes to any of the screening questions. Required for Residential Admits. a TBC For Mental Health Services: Who Is Your Primary Care Provider? D o You Have A PCP? N o [facility] D ate of last physical exam 0 -2023 Do You Have A Psychiatric Provider? D o You Have A Psychiatric Provider? Y es C Provider Name Chaya elliott Do You Have Any Other Professional Supports? D o You Have Any Other Professional Supports??[facility] Consent Forms Completed During Appointment C onsent Forms Completed N one Needed at this time A ssessment of Social Determinants of Health::: Has A PRAPARE Been Completed In The Past Year? H as a PRAPARE Been Completed In The Past Year? Y es W as It Completed Today Using [employer]? Y es S creening: [place] Suicide Severity Rating Scale (LF) D o you want to initiate with S creener form 1 . Wish to be : Have you wished you were or wished you could go to sleep and not wake up? N o 2 . Suicidal Thoughts: Have you actually had any thoughts of killing yourself? N o 6 . Suicide Behavior Question: Have you ever done anything,started to do anything, or prepared to end your life? Y es W ere any of these in the past 3 months? N o I nterpretation: L ow Risk D epression Screening: PHQ-9 L ittle interest or pleasure in doing things?Nearly every day F eeling down, depressed, or hopeless N early every day T rouble falling or staying asleep, or sleeping too much M ore than half the days F eeling tired or having little energy N ot at all P oor appetite or overeating S everal days F eeling bad about yourself or that you are a failure, or have let yourself or your family down M ore than half the days T rouble concentrating on things, such as reading the newspaper or watching television N ot at all M oving or speaking so slowly that other people could have noticed; or the opposite, being so fidgety or restless that you have been moving around a lot more than usual N ot at all T houghts that you would be better off or of hurting yourself in some way N ot at all T otal Score 1 1 I nterpretation M oderate Depression * Medical History: * Surgical History: * Hospitalization/Major Diagno stic Procedure: * Social History: S ocial Determinants: P SENTHIL Dillon ate Completed/Updated: 0 05/11/2024 W hat is your current housing situation? I do not have housing (staying with others, in a hotel, in a detention, living outside on the street, on a beach, or in a park) A re you worried about losing your housing??Yes W hat is the highest level of school that you have finished? M ore than high school W hat is your current work situation? O therwise unemployed but not seeking work (ex. 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 Check all that apply C lothing,Medicine or any health care (medical, dental, mental health or vision) H as lack of transportation kept you from medical appointments, meetings, work or from getting things needed for daily living? Y es, it has kept me from medical appointments or from getting my medications H ow often do you see or talk to people that you care about and feel close to? (For example: talking to friends on the phone, visiting friends or family, going to yazdanism or club meetings) 1 or 2 times a week H ow stressed are you? Stress is when someone feels tense, nervous, anxious, or can\t sleep at night because their mind is troubled V gracie much I n the past year have you spent more than 2 nights in a row in a care home, longterm, prison center, or juvenile correctional facility? N o A re you a refugee? N o W hat country are you from[place] D o you feel physically and emotionally safe where you currently live? N o I n the past year, have you been afraid of your partner or ex-partner? Y es P RAPARE Score: 1 3 * Medications: Objective: * Vitals: * Examination: M ental Status Exam: ATTENTION AND CONCENTRATION x , No deficits. APPEARANCE A ppropriate, Appears stated age. ATTITUDE AND BEHAVIOR C ooperative. EYE CONTACT P oor, due to vision impairments . AFFECT T earful,Sad. MOOD W orried. INSIGHT F air. JUDGMENT F air. Assessment: * Assessment: 1. M ood disorder - F39 2 . P sychotic disorder - F29 3 .?Trauma and stressor-related disorder - F43.9 Plan: * Treatment: * Procedure Codes: 9 0791 PSYCH DIAGNOSTIC EVALUATION, Modifiers: AJ CHS08 [facility] Service * * Sign off status: Completed true * Provider: Lilly Mace LCSW Date: 0 05/11/2024 Generated for Hay rodriguez/Myrtle/eTransmitting on: 0 05/13/2024 02:34 PM CDT History and Physical Notes * HPI (History of Present Illness) Category Sub-Category Detail Notes Category Not es Depression Screening PHQ-9 Little inte rest or pleasure in doing things: Nearly every day Feeling down, depressed, or hopeless: Ne bernabe every day Trouble falling or staying a sleep, or sleeping too much: More than half the days Feeling tired or having little energy: N ot at all Poor appetite or overeating: Several day s Feeling bad about yourself o r that you are a failure, or have let yourself or your family down: More than half the days Trouble concentrating on thi ngs, such as reading the newspaper or watching television: Not at all Moving or speaking so slowly that other people could have noticed; or the opposite, being so fidgety or restless that you have been moving around a lot more than usual: Not at all Thoughts that you would be b surinder off or of hurting yourself in some way: Not at all Total Score: 11 Interpretation: Moderate Depression Psychiatric Assessment - Current Symptoms Primary concern today x, Admitting today for MH Stabilization program, ex threw her out over something studpid reports said was a danger to her and her daughter. Overview of Mental Health Symptoms Repor ts very anxious and terrified, frequent crying. History of Psychiatric Hospitalizations Most recent: taty velasquez wek at [place]. Ex called crisis and said she was suicidal. Reports she was not acutally feeling suicidal. Reports not feeling safe around ex at this time. History of Psychiatric and B ehavioral Health Treatment Reports a long history of mental health care, currently seeing Suresh through [facility] Substance Use History of substance use none reported Hx of Withdrawal none reported Substance of Choice none reported Current Use Patterns none reported Screening [place] Suicide Sev erity Rating Scale (LF) Do you want to initiate with: Screener form 1. Wish to be : Have you wished you were or wished you could go to sleep and not wake up?: No 2. Suicidal Thoughts: Have you actually had any thoughts of killing yourself?: No 6. Suicide Behavior Question: Have you ever done anything,started to do anything, or prepared to end your life?: Yes Were any of these in the past 3 months?: No Interpretation:: Low Risk HIV Risk Assessment Screening Sexual Risk Behaviors: 1. Are you sexually active? (If no skip question 2): No Required for Residential Admits 2. Do you engage in sexual activity with out protection against STIs?: No HIV/AIDS/Hepatitis Risk Assessment 1. Craig ve you ever shared needles or equipment for injecting drugs, tattoos, or piercings with others?: No 2. Have you ever had unprote cted sex with someone you think might be infected with an STI or HIV (such as someone who injected drugs, who was diagnoed with or treated for an STI or hepatitis, has had mulitiple sex partners, or who has exchanged sex for drugs or money)?: No 3. Have you ever had unprote cted vaginal or anal intercourse with more than 1 sex partner?: No 4. Have you ever been diagno sed with or treated for an STI, hepatitis, or tuberculosis?: No 5. Have you ever had an unex plained fever or illness of unknown cause (not including the common cold)?: No 6. Have you ever been told t hat you have an infection related to a weak immune system ?: No 7. If YES to any of the abov e (including sexual risk behaviors), have you been tested in the past year for HIV/AIDS and/or Hepatitis C?: Low Risk: The patient did not answer yes to any of the screening questions. Assessment of Social Determinants of Health:: Has A PRAPARE Been Completed In The Past Year? Has a PRAPARE Been Completed In The Past Year?: Yes Was It Completed Today Using [employer]?: Yes [facility] Who Is Your Primary Care Provider? Do You Have A PCP?: No [facility] Interested in setting up primary care here Date of last physical exam: Do You Have A Psychiatric Provider? Do You Have A Psychiatric Provider?: Yes [facility] Provider Name: Suresh Do You Have Any Other Professional Supports? Do You Have Any Other Professional Supports?: Yes Fidelia Isidro-[facility] therapist Consent Forms Completed During Appointment Consent Forms Completed: None Needed at this time Examination Category Sub-Category Detail Notes Category Not es Mental Status Exam ATTENTION AND CONCENTRATION x, No d eficits APPEARANCE Appropriate, Appears stated age ATTITUDE AND BEHAVIOR Cooperative EYE CONTACT Poor, due to vision impairments AFFECT Tearful, Sad MOOD Worried INSIGHT Fair JUDGMENT Fair
--- OUTSIDE RECORDS SUMMARY | 2024-05-13 14:34 | XMS_ITS | Patient Health Record ---
Author Organization [facility] Address [address] [facility] [address] [place] [address] Care Team Providers Care Day Haul Youth Supervisor Name Role Phone Migration, Provider Unavailable Unavailable Reason For Referral No Information Medications Medication SIG (Take, Route, Frequency, Duration) Notes Start Date End Date Status Cymbalta 60 MG take 1 capsule by or al route every day Oral Active Diflucan 150 MG take 1 tablet by ora l route once, may repeat in 72 hours Oral 08/06/2019 Active HYDROcodone-Acetaminophen 5-325 MG take 1 tablet by oral route every 6 hours as needed for pain Oral 01/04/2018 Active LaMICtal 200 MG take 1 tablet by ora l route every day Oral Active Augmentin 500-125 MG take 1 tablet by or al route every 12 hours Oral Active Singulair 4 MG 1 tablet orally daily Oral Active Cardizem 30 MG take 1 tablet by ora l route 2 times every day Oral Active ZyPREXA 20 MG take 1 tablet by ora l route every day Oral Active clonazePAM 1 MG take 1 tablet by ora l route 3 times every day Oral Active Nystatin 090180 UNIT/GM apply by topical route 4 times every day to the affected area(s) External 08/08/2019 Active Prazosin HCl 1 MG take 1 capsule by or al route qhs Oral Active Premarin 1.25 MG take 2 tablets by or al route twice a day for 14 days Oral 11/11/2017 Active Provera 10 MG take 2 tablet by ora l route every day Oral 11/03/2017 Active Encounters Encounter Location Date Provider Diagnosis Ivonne Philip [facility] [address] [facility] [address] [place], [place] [phone] 11/26/2023 Provider Migration Ar Tamera [facility] [address] [facility] [address] [place], [place] [phone] 11/27/2023 Provider Migration Plan Of Treatment No Information Insurance Providers Payer Name Payer Address Payer Phone Subscriber Number Group Number Insured Name Patient Relationship to Insured Coverage Start Date Coverage End Date [facility] [id number] [place], [place] [id number] Ashlee Ramos Self - patient is the insured 5
--- OUTSIDE RECORDS SUMMARY | 2024-05-13 14:34 | XMS_ITS ---
Author Organization [facility] Address [address] [place] [address] Care Team Providers Care Exhibits Curator Name Role Phone Catrina Rainermontana Primary Care Provider [phone] Arturo Dye [phone] Allergies Allergen (clinical drug ingredient) Drug/Non Drug [...] negn PCP neg BUP neg Creatinine neg REASON FOR VISIT CRU physical Medications Medication SIG (Take, Route, Frequency, Duration) Notes Start Date End Date Status Haloperidol 20 MG 1 tablet Orally at bedtime Active Prazosin HCl 5 MG 1 capsule (with 2 mg for 7 mg total) Orally at bedtime Active Lactulose 10 GM/15ML 15 mL as needed Orally twice a day for 30 days As needed constipation 05/11/2024 Active Acetaminophen 500 MG 1 tablet as needed Orally every 6 hrs Active Vitamin D (Cholecalciferol) 50 MCG (1999 UT) 1 capsule Orally Once a day Not-Taking acetaZOLAMIDE ER 500 MG 2 capsules Orall y Twice a day Active Ativan 0.5 MG 1 tablet three times a day as needed Orally three times a day as needed for 30 days 05/04/2024 Active Haloperidol 5 MG 1 tablet Orally in t he morning Active [place] Carbonate 300 MG 1 capsule 8 am and 2 pm Orally as directed for 30 days Active traZODone HCl 50 MG 0.5 tablet to 1 tabl et (25 to 50 mg) Orally at bedtime as needed Active [place] Carbonate 600 MG 1 capsule Orall y at bedtime Active lamoTRIgine 200 MG 1 tablet Orally Once a day Active Social History Sex Assigned At : Social History Observation Description Sex Assigned At Female Problems Problem Type SNOMED Code ICD Code Onset Dates Problem Status W/U Status Risk Notes Problem Constipation (58347582) Constipation (K59.00) Active confirmed Problem Legal blindness ([place]) (082391832) Legally blind (H54.8) Active confirmed Vital Signs Blood pressure systolic 120 mm Hg 05/12/19 25 Blood pressure diastolic 74 mm Hg 025 Heart Rate 74 /min 05/11/2024 Oximetry 95 % 05/11/2024 Temperature 97.7 degrees Fahrenheit 05/12/19 25 Respiratory Rate 16 /min 05/11/2024 Weight 234.0 lbs 05/11/2024 BMI 40.16 kg/m2 05/11/2024 Height 64 in 05/11/2024 Encounters Encounter Location Date Provider Diagnosis [address] [place] [address] 05/11/2024 Arturo Hardik Breast discharge N64.52 ; Palpitations R00.2 ; Intracranial hypertension G93.2 ; Mood disorder F39 ; Exposure to potential infection Z20.9 ; Vaginal discharge N89.8 ; 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 ; Bipolar 2 disorder F31.81 ; Constipation K59.00 and Legally blind H54.8 Assessments Encounter Date Diagnosis (ICD Code) Assessment Notes Treatment Notes Treatment Clinical Notes Section Notes 05/11/2024 Breast discharge (ICD-10 - N64.52) CLEAR DISCHARGE LEFT BREAST 05/11/2024 Palpitations (ICD-10 - R00.2) STOP FLECAINAIDE, CONTINUE DIGOXIN. AWAIT RECORDS FROM CARDIOLOGY. 05/11/2024 Intracranial hypertension (ICD-10 - G93.2) 05/11/2024 Mood disorder (ICD-10 - F39) 05/11/2024 Exposure to potential infection (ICD-10 - Z20.9) 05/11/2024 Vaginal discharge (ICD-10 - N89.8) 05/11/2024 Trauma and stressor-related disorder (ICD-10 - F43.9) 05/11/2024 Bipolar 2 disorder (ICD-10 - F31.81) consideration to schizoaffective d/o bipolar type 05/11/2024 Constipation (ICD-10 - K59.00) HX HIRSCHSPRUNG DISEASE SINCE CHILDHOOD 05/11/2024 Legally blind (ICD-10 - H54.8) 05/11/2024 Other ZACHERY FOR 04/2024 ADMISSION FROM [facility] AND FROM [facility] CARDIOLOG[facility] FOR 02/28/2023 TO PRESENT. Plan Of Treatment Medication Medication Name Sig Start Date Stop Date Notes Haloperidol 20 MG 1 tablet Orally at bedtime Prazosin HCl 5 MG 1 capsule (with 2 mg for 7 mg total) Orally at bedtime Lactulose 10 GM/15ML 15 mL as needed Ora lly twice a day for 30 days 05/11/2024 Prazosin HCl 2 MG 1 capsule (with 5 mg for 7 mg total) Orally at bedtime Metoclopramide HCl Digoxin 125 MCG 1 tablet Orally Zofran Vitamin B 12 100 MCG as directed Orally dilTIAZem HCl ER 240 MG 1 tablet Orally Once a day Compazine Acetaminophen 500 MG 1 tablet as needed Orally every 6 hrs Flecainide Acetate 100 MG 0.5 tablet Orally every 12 hrs Bentyl 10 MG/ML 1 mL orally Four times a day Famotidine 10 MG 1 tablet as needed O rally Twice a day Topamax 50 MG 1 tablet Orally twice a day Lyrica 75 MG 1 capsule Orally twice a day Claritin 10 MG 1 tablet Orally Once a day Haloperidol 5 MG 1 tablet Orally in the morning traZODone HCl 50 MG 0.5 tablet to 1 tabl et (25 to 50 mg) Orally at bedtime as needed Garden [place] Carbonate 600 MG 1 capsule Orally at bedtime lamoTRIgine 200 MG 1 tablet Orally Once a day Pending Test Test Name Order Date Breathalyzer 05/11/2024 QuantiFERON-TB Gold Plus ([id number]) 2024 Next Appt Details Follow Up: 1 Week, Reason: L EFT BREAST DISCHARGE, VAGINAL DISCHARGE Provider Name:June Yandy Plunkett rt, 05/14/2024 11:00:00 AM, [address], [place], [address], Provider Name:Suresh donnelly, 05/15/2024 01:40:00 PM, [address] [place], [address], Progress Notes * Thom PAULjoceDOB:1990 (33 yo F)Acc No.[id number]:05/11/2024 UNLOCKED PROGRESS NOTE Patient: Ashlee RODGERS Provider: Chaya Dye :1990 A ge:33 Y S ex:Female Date:05/11/2024 [facility] Pcp:Suresh Fritz Subjective: * Chief Complaints: * 1 . CRU physical. * HPI: H IV Risk Assessment Screening: Sexual Risk [...] the screening questions. Required for Residential Admits. S creening: [place] Suicide Severity Rating Scale (LF) D o [...] 1 1 I nterpretation M oderate Depression Intervention D epression Screening Findings P ositive F ollow-Up for Depression P lashonda is admitted to a [facility] unit where their mental health is monitored - unit nursing staff have access to this encounter note C SSRS Interpretation and Follow Up Plan: CSSRS Interpretation and Follow Up Plan C SSRS Screen documented using SF Y es R isk Disposition from L ow - No Follow Up Plan Required F ollow Up Plan N o Follow Up Plan required at this time. I nterim History: ADMITTED FROM [facility] FOR SI. CRISIS UNIT. HX PALPITATIONS LIKE A GOLDFISH FLOPPING INSIDE ME . SEE CARDIOLOGY AT [facility]. 02/2023 WAS AT [facility] AND ALL CARDIAC MEDS WERE STOPPED. RESUMED THEM ON HER OWN DUE TO PALPITATIONS. HX ASTHMA CHILD. DENIED ISSUES NOW. HX INTRACRANIAL HTN. HX LOW VISION RELATED TO THAT AND SURGERY X 2 FOR [facility] 2022. SEES PSYCH. GOING THROUGH BREAK-UP OF LONG-TERM RELATIONSHIP WITH '' (NOT OFFICIALLY ). STEP-DAUGHTER LIVES WITH THEM. MUCH TURMOIL IN HOUSEHOLD. * ROS: B asic ROS: Admits C onstipation. A dmits P alpitations. ? 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 * Surgical History: 2 brain surgery 11/2022, [facility] 2017. * Hospitalization/Major Diagno stic Procedure: b rain surgery - shunt placement x 29 Jan 2023, [facility] for hearing voices Feb 2023, [facility] medical for any major headache Apr 2023, Viral infection, [facility] Mar 2024, [facility] SI Mar 2024, [facility] 04/2024. * Family History: F ather: alive. M other: alive. 2 sister(s) - healthy. 1 daughter(s) - healthy. .? * Social History: [facility] Social History: S jeffrey Question Alcohol Screening H ow may times in the past year have you had (4 for women, or 5 for men) or more drinks in a day? 0 * Medications: T aking Prazosin HCl 2 MG Capsule 1 capsule (with 5 mg for 7 mg total) Orally at bedtime , Taking Prazosin HCl 5 MG Capsule 1 capsule (with 2 mg for 7 mg total) Orally at bedtime , Taking [place] Carbonate 300 MG Capsule 1 capsule 8 am and 2 pm Orally as directed , Taking Ativan 0.5 MG Tablet 1 tablet three times a day as needed Orally three times a day as needed , Taking Haloperidol 20 MG Tablet 1 tablet Orally at bedtime , Taking Haloperidol 5 MG Tablet 1 tablet Orally in the morning , Taking lamoTRIgine 200 MG Tablet 1 tablet Orally Once a day , Taking [place] Carbonate 600 MG Capsule 1 capsule Orally at bedtime , Taking traZODone HCl 50 MG Tablet 0.5 tablet to 1 tablet (25 to 50 mg) Orally at bedtime as needed , Taking Lyrica 75 MG Capsule 1 capsule Orally twice a day , Taking Topamax 50 MG Tablet 1 tablet Orally twice a day , Taking acetaZOLAMIDE ER 500 MG Capsule Extended Release 12 Hour 2 capsules Orally Twice a day , Taking Claritin 10 MG Tablet 1 tablet Orally Once a day , Taking Famotidine 10 MG Tablet 1 tablet as needed Orally Twice a day , Taking Bentyl 10 MG/ML Solution 1 mL orally Four times a day , Taking Flecainide Acetate 100 MG Tablet 0.5 tablet Orally every 12 hrs , Taking Acetaminophen 500 MG Tablet 1 tablet as needed Orally every 6 hrs , Taking Digoxin 125 MCG Tablet 1 tablet Orally , Not-Taking Zofran , Not-Taking Compazine , Not-Taking dilTIAZem HCl ER 240 MG Tablet Extended Release 24 Hour 1 tablet Orally Once a day , Not-Taking Vitamin D (Cholecalciferol) 50 MCG (1999 UT) Capsule 1 capsule Orally Once a day , Not- Taking Vitamin B 12 100 MCG Lozenge as directed Orally , Not-Taking Metoclopramide HCl , Medication List reviewed and reconciled with the patient * Allergies: M orphine Sulfate: Anaphylaxis, Dilaudid. Objective: * Vitals: I nitials:TT, Wt:234.0, Ht:64, BMI:40.16, BP:120/74, HR:74, Oxygen sat %:95, Temp:97.7, RR:16. * Examination: G eneral Examination: GENERAL APPEARANCE: w ell developed, well nourished, in no acute distress. HEAD: n ormocephalic, atraumatic. EYES: P ERRLA, sclera and conjunctiva clear. EARS External ears intact. NOSE: n abel patent, no lesions, septum intact. ORAL CAVITY: m ucosa moist. THROAT: n o erythema, no exudate, pharynx normal. NECK/THYROID: n o JVD, no goiter. SKIN: w arm and dry, no rashes. HEART: r egular rate and rhythm, no murmurs. LUNGS: r espirations regular and easy, clear to auscultation bilaterally. ABDOMEN: b owel sounds present, soft, nontender, nondistended, no masses palpable, no organomegaly . MUSCULOSKELETAL: n o joint deformity, swelling, redness, or warmth , SUJATA upper and lower extremities. EXTREMITIES: n o clubbing, cyanosis, or edema. NEUROLOGIC: c ranial nerves 2-12 grossly intact. A ctivity Permissions and Medication Self Administration: Activity Level & Medication Self-Administration Permissions? A ctivity Level Permitted: T he patient/client may fully take part in physical fitness programming including aerobic, muscular strength, and flexibility training without restriction. M edication Self-Administration Permissions:?Medications may be self-administered by the patient/client under the supervision of approved staff or administered by nursing staff. Assessment: * Assessment: 1. P alpitations - R00.2 (Primary) 2 . B reast discharge - N64.52 ? 3 . I ntracranial hypertension - G93.2 4 . M ood disorder - F39 ? 5 . E xposure to potential infection - Z20.9 6 . V aginal discharge - N89.8 7 . T rauma and stressor-related disorder - F43.9 8 .?Bipolar 2 disorder - F31.81 S pecify :with psychotic features N otes :consideration to schizoaffective d/o bipolar type 9 . C onstipation - K59.00 1 0. L egally blind - H54.8? Plan: * Treatment: 2. B reast discharge Clinical Notes: CLEAR DISCHARGE LEFT BREAST 3. M ood disorder L AB: 12 Panel Urine Drug Screen (Collection Date & Time - 05/11/2024) Value Reference Range T HC neg * C OC neg * M OP (OPI) neg * A MP neg * M ET neg * B AR neg * B ZO neg * M DMA neg * M TD neg * O XY negn * P CP neg * B UP neg * C reatinine neg 4.?Exposure to potential infection?LAB: QuantiFERON-TB Gold Plus ([id number]) (Collection Date & Time - 05/11/2024 12:16 PM) ?LAB: Breathalyzer (Collection Date & Time - 05/11/2024)5.?Trauma and stressor-related disorder? Stop Prazosin HCl Capsule, 2 MG, 1 capsule (with 5 mg for 7 mg total), Orally, at bedtime;?Continue Prazosin HCl Capsule, 5 MG, 1 capsule (with 2 mg for 7 mg total), Orally, at bedtime;?Continue traZODone HCl Tablet, 50 MG, 0.5 tablet to 1 tablet (25 to 50 mg), Orally, at bedtime as needed.??6.?Bipolar 2 disorder? Continue Haloperidol Tablet, 20 MG, 1 tablet, Orally, at bedtime;?Continue Haloperidol Tablet,5 MG, 1 tablet, Orally, in the morning;?Continue lamoTRIgine Tablet, 200 MG, 1 tablet, Orally,Once a day;?Continue Garden Ridge Carbonate Capsule, 600 MG, 1 capsule, Orally, at bedtime.? 7.?Constipation? Start Lactulose Solution, 10 GM/15ML, 15 mL as needed, Orally, twice a day As needed constipation, 30 days, 900 ML, Refills 0.?? Clinical Notes: HX HIRSCHSPRUNG DISEASE SINCE CHILDHOOD??8.?Others? Stop Lyrica Capsule, 75 MG, 1 capsule, Orally, twice a day;?Stop Topamax Tablet, 50 MG, 1 tablet, Orally, twice a day;?Stop Claritin Tablet, 10 MG, 1 tablet, Orally, Once a day;?Stop Famotidine Tablet, 10 MG, 1 tablet as needed, Orally, Twice a day;?Stop Bentyl Solution, 10 MG/ML, 1 mL, orally, Four times a day;?Continue Acetaminophen Tablet, 500 MG, 1 tablet as needed, Orally, every 6 hrs;?Stop Zofran;?Stop Digoxin Tablet, 125 MCG, 1 tablet, Orally;?Stop Compazine;?Stop dilTIAZem HCl ER Tablet Extended Release 24 Hour, 240 MG, 1 tablet, Orally, Once a day;?Stop Vitamin B 12 Lozenge, 100 MCG, as directed, Orally;?Stop Metoclopramide HCl.?? Clinical Notes: ZACHERY FOR 04/2024 ADMISSION FROM [facility] AND FROM [facility] CARD[facility] FOR 02/28/2023 TO PRESENT. ?? * Procedure Codes: 9 9000 SPECIMEN HANDLING, 86393 TB TEST, CELL IMMUN MEASURE * Follow Up: 1 Week (Reason: LEFT BREAST DISCHARGE, VAGINAL DISCHARGE) * * Electronic signature of Henna Dye , [id number] on 05/13/2024 at 02:33 PM CDT Sign off status: Pending * Provider: Chaya Dye Date: 0 05/11/2024 Generated for Hay rodriguez/Myrtle/Charley on: 0 05/13/2024 02:33 PM CDT History and Physical Notes * [...] all Total Score: 11 Interpretation: Moderate Depression Intervention Depression Screening Findings: P ositive Follow-Up for Depression: Hernandez lawrence is admitted to a [facility] unit where their mental health is monitored - unit nursing staff have access to this encounter note Screening [place] Suicide Sev erity Rating Scale (LF) Do [...] yes to any of the screening questions. CSSRS Interpretation and Follow Up Plan CSSRS Interpretation and Follow Up Plan CSSRS Screen documented using SF: Yes Risk Disposition from SF: Low - No Follo w Up Plan Required Follow Up Plan: No Follow Up Plan requir ed at this time. Examination Category Sub-Category Detail Notes Category Not es General Examination GENERAL APPEARANCE: well dev eloped, well nourished, in no acute distress HEAD: normocephalic, atrau matic EYES: PERRLA, sclera and c onjunctiva clear EARS External ears intact NOSE: nares patent, no les ions, septum intact THROAT: no erythema, no exud ate, pharynx normal NECK/THYROID: no JVD, no goiter HEART: regular rate and rhy thm, no murmurs LUNGS: respirations regular and easy, clear to auscultation bilaterally ABDOMEN: bowel sounds present , soft, nontender, nondistended, no masses palpable, no organomegaly NEUROLOGIC: cranial nerves 2-12 grossly intact SKIN: warm and dry, no bob hes EXTREMITIES: no clubbing, cyanosi s, or edema MUSCULOSKELETAL: no joint deformity, swelling, redness, or warmth , SUJATA upper and lower extremities ORAL CAVITY: mucosa moist Activity Permissions and Medication Self Administration Activity Level & Medication Self-Administration Permissions Activity Level Permitted:: The patient/client may fully take part in physical fitness programming including aerobic, muscular strength, and flexibility training without restriction. Medication Self-Administrati on Permissions:: Medications may be self- administered by the patient/client under the supervision of approved staff or administered by nursing staff.
--- OUTSIDE RECORDS SUMMARY | 2024-05-13 14:34 | XMS_ITS | Patient Health Summary ---
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 This disclosure is being madepursuant to the Care Everywhere program and may not contain all information available regarding this patient. Last updated 17.[facility] Allergies * Hydromorphone(Anaphylaxis) -High Criticality * Metoprolol(GI Discomfort) * Morphine(Anaphylaxis) -High Criticality * Oxycodone-Acetaminophen(Other,Nausea and/or Vomiting) -Low Criticality * Papaver(Anaphylaxis) -High Criticality * Papaveraceae(Anaphylaxis) -High Criticality * Sulfamethoxazole W-Trimethoprim(GI Discomfort) * Sulfanilamide(GI Discomfort) Medications * Be aware that medications may not be up to date on this document. Alwaysverify current medications with the patient. * OLANZapine (ZYPREXA) 20 MG tablet(Started 06/10/2020) Take 1 (one) tablet by mouth once daily * lamoTRIgine (LAMICTAL) 200 MG tablet(Started 06/06/2020) Take 1 (one) tablet by mouth once daily * prazosin (MINIPRESS) 5 MG capsule(Started 06/11/2020) Take 1 (one) capsule by mouth once daily * dilTIAZem (CARDIZEM) 60 MG tablet(Started 10/16/2020) Take 1 (one) tablet by mouth once daily as needed 4 refills by 10/16/2021 * OLANZapine (ZYPREXA) 5 MG tablet(Started 10/14/2020) Take 1 (one) tablet by mouth once daily * prazosin (MINIPRESS) 1 MG capsule(Started 10/20/2020) Take 2 (two) capsules by mouth at bedtime With 5 mg tab for total 7 mg daily * buPROPion SR 12hr (WELLBUTRIN-SR) 150 MG tablet(Started 05/28/2021) TAKE 1 TABLET BY MOUTH ONCE DAILY IN THE MORNING * Dilt-XR 240 MG capsule(Started 02/08/2022) TAKE 1 CAPSULE BY MOUTH ONCE DAILY IN THE MORNING. APPOINTMENT REQUIRED FOR FUTURE REFILLS 3 refills by 02/08/2023 * tiZANidine (Zanaflex) 4 MG tablet(Started 09/17/2022) TAKE 1 TABLET BY MOUTH EVERY 8 HOURS NEEDED FOR MUSCLE SPASM * propranolol (Inderal) 20 MG tablet(Started 09/27/2022) TAKE 1 TABLET BY MOUTH TWICE DAILY FOR MIGRAINE HEADACHES * pantoprazole EC (Protonix) 40 MG tablet(Started 11/10/2022) Take 1 (one) tablet by mouth daily before breakfast Reasons: Gastroesophageal Reflux Disease 4 refills by 11/10/2023 * acetaZOLAMIDE (Diamox) 250 MG tablet(Started 12/17/2022) Take 4 (four) tablets by mouth 2 times daily * amphetamine-dextroamphetamine (Adderall) 20 MG tablet Take 1 (one) tablet by mouth 2 times daily * folic acid (Folvite) 1 MG tablet(Started 12/01/2022) Take 1 (one) tablet by mouth once daily * famotidine (Pepcid) 40 MG tablet Take 1 (one) tablet by mouth 2 times daily * topiramate (Topamax) 50 MG tablet(Started 12/17/2022) Take 1 (one) tablet by mouth 2 times daily * vitamin D, ergocalciferol, (Drisdol) 1.25 MG (54480 UT) capsule(Started 05/25/2023) Take 1 capsule by mouth once a week * haloperidol (Haldol) 5 MG tablet(Started 06/16/2023) TAKE 1 TABLET BY MOUTH TWICE DAILY FOR 9 DAYS * fluticasone propionate (Flonase) 50 MCG/ACT nasal spray(Started 06/20/2023) Downey 2 (two) sprays into each nostril once daily * ofloxacin (Floxin) 0.3 % otic solution(Started 06/20/2023) Instill 5 (five) drops into both ears 2 times daily * cyanocobalamin (Vitamin B-12) 500 MCG tablet(Started 09/15/2023) Take 1 tablet by mouth once daily 1 refill by 09/14/2024 * fluconazole (Diflucan) 150 MG tablet(Started 10/03/2023) Take two tablets by moutn once * dicyclomine (Bentyl) 20 MG tablet(Started 11/30/2023) Take 1 (one) tablet by mouth 4 times daily as needed Reasons: Cramping Pain in the Abdomen 1 refill by 11/29/2024 * pregabalin (Lyrica) 75 MG capsule(Started 04/10/2024) Take 1 (one) capsule by mouth 2 times daily * lithium carbonate (Eskalith) 300 MG capsule(Started 03/30/2024) TAKE ONE CAPSULE BY MOUTH AT 8 AM AND ONE AT 2PM DIRECTED * amoxicillin-clavulanate (Augmentin) 500-125 MG tablet take 1 tablet by oral route every 12 hours Oral * clonazePAM (KlonoPIN) 1 MG tablet take 1 tablet by oral route 3 times every day Oral * montelukast (Singulair) 4 MG chew tablet 1 tablet orally daily Oral * nitrofurantoin monohyd macro crystals (Macrobid) 100 MG capsule(Started 09/22/2023) TAKE 1 CAPSULE BY MOUTH TWICE DAILY WITH MORNING MEAL AND WITH EVENING MEAL * ondansetron, disintegrating, (Zofran ODT) 4 MG tablet(Started 04/08/2024) Take 1 (one) tablet by mouth every 8 hours as needed * prochlorperazine (Compazine) 10 MG tablet(Started 04/08/2024) Take 1 (one) tablet by mouth every 6 hours as needed * traZODone (Desyrel) 50 MG tablet(Started 03/15/2024) TAKE 1/2 TO 1 (ONE-HALF TO ONE) TABLET BY MOUTH AT BEDTIME NEEDED FOR 30 DAYS * docusate sodium (Colace) 100 MG capsule(Started 04/24/2024) Take 1 (one) capsule by mouth 2 times daily * LORazepam (Ativan) 0.5 MG tablet(Started 04/23/2024) TAKE 1 TABLET BY MOUTH THREE TIMES DAILY NEEDED FOR 30 DAYS * haloperidol (Haldol) 20 MG tablet(Started 04/12/2024) Take 1 (one) tablet by mouth at bedtime * flecainide (Tambocor) 50 MG tablet(Started 05/01/2024) Take 1 (one) tablet by mouth once daily 3 refills by 05/01/2025 * digoxin (Lanoxin) 0.125 MG tablet(Started 05/01/2024) Take 1 (one) tablet by mouth once daily PLEASE MAKE APPOINTMENT FOR FUTURE REFILLS 3 refills by 05/01/2025 Ended Medications* lithium CR (ESKALITH CR) 450 MG tablet(Discontinued) Take 600 mg by mouth every 12 hours * LORazepam (ATIVAN) 0.5 MG tablet(Started 06/03/2021)(Discontinued) Take 1 (one) tablet by mouth 2 times daily as needed * DULoxetine HCl 40 MG(Started 04/12/2023)(Discontinued) Take 1 capsule by mouth once daily * haloperidol (Haldol) 10 MG tablet(Started 06/15/2023)(Discontinued) Take 1 (one) tablet by mouth once daily * digoxin (Lanoxin) 0.125 MG tablet(Started 12/27/2023)(Discontinued) Take 1 (one) tablet by mouth once daily PLEASE MAKE APPOINTMENT FOR FUTURE REFILLS 2 refills by 12/26/2024 * flecainide (Tambocor) 50 MG tablet(Started 03/30/2024)(Discontinued) Take 1 (one) tablet by mouth once daily 1 refill by 03/30/2025 Active Problems Problem Noted Date Diagnosed Date Paroxysmal atrial fibrillation 05/01/2024 Bacterial folliculitis 06/20/2023 Otalgia, left ear 06/20/2023 Dysfunction of Eustachian tube, bilateral 2023 Papilledema associated with increased intracrani al pressure 12/16/2022 12/26/2022 S/P DEEP FRYER ASSEMBLER shunt 12/12/2022 06/20/2023 Visual field defect of both eyes 11/24/2022 12/26/2022 SOB (shortness of breath) 03/25/2022 Vitamin D deficiency 03/23/2022 Essential hypertension 09/13/2021 Otosclerosis of both ears 10/20/2020 IIH (idiopathic intracranial hypertension) 10/20 BMI 39.0-39.9,adult 10/20/2020 Bipolar 1 disorder 10/20/2020 Family history of skin cancer 10/20/2020 Atypical mole 10/20/2020 Hearing loss of right ear 10/20/2020 Precordial chest pain 10/16/2020 Nicotine dependence 10/12/2020 Chest pain 10/12/2020 Hirschsprung's disease 07/01/2020 H/O total hysterectomy 07/01/2020 History of loop recorder 07/01/2020 Helicobacter pylori gastrointestinal tract infec tion 10/08/2013 Nausea with vomiting 10/08/2013 Abdominal pain 10/08/2013 Resolved Problems Problem Noted Date Diagnosed Date Resolved Date Arrhythmia 10/12/2020 05/01/2024 Bipolar 1 disorder 10/12/2020 Paroxysmal atrial fibrillation 07/01/2020 05/01/2024 CAD in minto artery 07/01/2020 022 Constipation 10/08/2013 01/22/2021 Immunizations * COVID PFIZER BIVALENT 12Y+ 30mcg/0.3ML(Given 11/24/2021) * Covid Moderna primary monovalent 12+ yr 0.5mL(Given 05/29/2020, 05/01/2020) * DTP(Given 05/01/1992, 04/20/1991, 01/17/1991, 1990) * HEP B VACCINE, PED/ADOL(Given 08/15/2008, 12/13/2007) * HIB-HAEMOPHILUS INFLUENZAE B CONJUGATE VACCINE(Given 01/21/1992, 04/20/1991, 01/17/1991, 1990) * Human Papilloma Virus Quadrivalent Vaccine(Given 08/15/2008, 10/07/2006) * INFLUENZA VACCINE, CELL CULTURE, QUADR. (FLUCELVAX QUADRIVALENT; 6MO+) (CCIIV4)(Given 11/24/2021) * MENINGOCOCCAL CONJUGATE (MCV4P)(Given 10/07/2006) * MMR(Given 01/21/1992) * PNEUMOCOCCAL PCV20 CONJ VAC IM(Given 04/16/2022) * PNEUMOCOCCAL PPSV23(Given 10/20/2020) * POLIO OPV(Given 05/01/1992, 04/20/1991, 01/17/1991, 1990) * TD (AGE 7-ADULT)(Given 09/08/2004) * TDAP (7yrs+)(Given 10/19/2021) Social History Tobacco Use Types Packs/Day Years [...] Comments Blood Pressure 120/72 05/01/2024 11:41 AM GLASS VIAL FILLER Pulse 84 05/01/2024 11:41 AM GLASS VIAL FILLER Temperature 36.1 C (96.9 F) 06/20/2023 12:45 PM CDT Respiratory Rate - - Oxygen Saturation 99% 06/20/2023 12: 45 PM CDT Inhaled Oxygen Concentration - - Weight 108.1 kg (238 lb 6.4 oz) 025 11:41 AM GLASS VIAL FILLER Height 165.1 cm (5' 5 ) 06/20/2023 12:4 5 PM CDT Body Mass Index 39.67 06/20/2023 12:45 PM CDT Procedures * EKG 12-LEAD(Performed 05/01/2024) Performed for Paroxysmal atrial fibrillation (HCC) * CULTURE URINE(Performed 09/21/2023) Performed for Urinary tract infection without hematuria, site unspecified * URINALYSIS NO MICROSCOPIC NO CULTURE(Performed 09/21/2023) Performed for Urinary tract infection without hematuria, site unspecified * MAGNESIUM BLOOD(Performed 07/01/2023) Performed for Paroxysmal atrial fibrillation (HCC), Encounter for monitoring flecainide therapy * BASIC METABOLIC PANEL (CALCIUM TOTAL)(Performed 07/01/2023) Performed for Paroxysmal atrial fibrillation (HCC), Encounter for monitoring flecainide therapy * EKG 12-LEAD(Performed 07/01/2023) Performed for Paroxysmal atrial fibrillation (HCC) * DIGOXIN LEVEL(Performed 07/01/2023) Performed for Medication monitoring encounter * MAGNESIUM BLOOD(Performed 07/01/2023) Performed for Paroxysmal atrial fibrillation (HCC) * BASIC METABOLIC PANEL (CALCIUM TOTAL)(Performed 07/01/2023) Performed for Paroxysmal atrial fibrillation (HCC) * URINALYSIS - POINT OF CARE(Performed 06/20/2023) Performed for Pelvic pain in female * FL LOWER GI(Performed 07/30/2022) Performed for Hirschsprung's disease (HCC), Constipation, unspecified constipation type, Generalized abdominal pain * HELICOBACTER PYLORI UREA BREATH TEST(Performed 07/02/2022) Performed for Generalized abdominal pain, Gastritis, Helicobacter pylori * ECHO STRESS EXERCISE COLOR FLOW AND DOPPLER(Performed 04/16/2022) Performed for SOB (shortness of breath) * LIPID PROFILE(Performed 03/25/2022) Performed for SOB (shortness of breath) * B-TYPE NATRIURETIC PEPTIDE(Performed 03/25/2022) Performed for SOB (shortness of breath) * URINALYSIS MICROSCOPIC ONLY REFLEXED(Performed 03/19/2022) Performed for Dizziness * COMPREHENSIVE METABOLIC PANEL(Performed 03/19/2022) Performed for Migraine with status migrainosus, not intractable, unspecified migraine type, BMI 39.0-39.9,adult, Dizziness * HEMOGLOBIN A1C(Performed 03/19/2022) Performed for BMI 39.0-39.9,adult * URINALYSIS REFLEX MICROSCOPIC REFLEX CULTURE(Performed 03/19/2022) Performed for Dizziness * IRON + TIBC + FERRITIN(Performed 03/19/2022) Performed for Iron deficiency anemia, unspecified iron deficiency anemia type * CBC W/O DIFFERENTIAL(Performed 03/19/2022) Performed for Iron deficiency anemia, unspecified iron deficiency anemia type * ZINC BLOOD(Performed 03/19/2022) Performed for Dizziness * VITAMIN B6(Performed 03/19/2022) Performed for Dizziness, Fatigue, unspecified type * VITAMIN B12(Performed 03/19/2022) Performed for Dizziness, Fatigue, unspecified type * VITAMIN A(Performed 03/19/2022) Performed for Dizziness * VITAMIN B12 FOLATE PANEL(Performed 03/19/2022) Performed for Fatigue, unspecified type * VITAMIN D 25-HYDROXY(Performed 03/19/2022) Performed for Fatigue, unspecified type * TSH+FREE T4+FREE T3(Performed 03/19/2022) Performed for Dizziness * ILR CLINIC CHECK(Performed 09/07/2021) Performed for Paroxysmal atrial fibrillation (HCC), History of loop recorder * AUDIOLOGY/TYMPANOMETRY ORDER(Performed 03/09/2021) * AUDIOLOGY/TYMPANOMETRY ORDER(Performed 12/25/2020) * EKG 12-LEAD(Performed 10/16/2020) Performed for Precordial chest pain * ILR CLINIC CHECK(Performed 10/06/2020) Performed for Paroxysmal atrial fibrillation (HCC), History of loop recorder * ILR CLINIC CHECK(Performed 07/22/2020) Performed for Paroxysmal atrial fibrillation (HCC), History of loop recorder * ILR CLINIC CHECK(Performed 07/01/2020) Performed for Paroxysmal atrial fibrillation (HCC), History of loop recorder * EKG 12-LEAD(Performed 07/01/2020) Performed for Paroxysmal atrial fibrillation (HCC) * CARDIAC PACER/DEFIB ORDER(Performed 08/24/2019) * CARDIAC PACER/DEFIB ORDER(Performed 08/13/2019) * EP STUDY(Performed 03/09/2019) * HOLTER MONITOR(Performed 12/26/2014) Results * CULTURE URINE (09/21/2023 1:21 PM CDT) Urine Culture Routine Final report [facility] ACCOUNT BILL Result 1 [facility] ACCOUNT BILL Comment: Mixed urogenital mariya Less than 10,000 colonies/mL Urine URINE SPECIMEN COLLECTION, CATHETERIZED / Unknown 09/21/2023 1:21 PM CDT 09/21/2023 Narrative Resulting Agency Comment Lab Testing performed at: [address] [id number] June Waldron MD LAB - MICROBIOLOGY O RDERABLES Performing Organization Address [facility] Co de Phone Number [facility] ACCOUNT BILL [address] [place] [address] * (ABNORMAL) URINALYSIS NO MICROSCOPIC NO CULTURE (09/21/2023 1:20 PM CDT) Specific Rhame UA 1.010 1.005 - 1.030 [facility] ACCOUNT BILL pH UA 7.0 5.0 - 7.5 [facility] ACCOUNT BILL Color UA Yellow Yellow [facility] ACCOUNT BILL Appearance Clear Clear [facility] ACCOUNT BILL Leukocyte UA 2+(A) Negative [facility] ACCOUNT BILL Protein UA Negative Negative/Tra ce [facility] ACCOUNT BILL Glucose UA Negative Negative [facility] ACCOUNT BILL Ketone UA Negative Negative [facility] ACCOUNT BILL Occult Blood Urine Negative Negative [facility] ACCOUNT BILL Bilirubin UA Negative Negative [facility] ACCOUNT BILL Urobilinogen 0.2 0.2 - 1.0 mg/dL [facility] ACCOUNT BILL Nitrite UA Negative Negative [facility] ACCOUNT BILL Urine URINE SPECIMEN OBTAINED BY CLEAN CATCH PROCEDURE / Unknown 09/21/2023 1:20 PM CDT 09/21/2023 Narrative Resulting Agency Comment Lab Testing performed at: [address] [id number] June Waldron MD LAB - URINALYSIS ORD ERABLES Performing Organization Address [facility] Co de Phone Number [facility] ACCOUNT BILL [address] [place] [address] * (ABNORMAL) BASIC METABOLIC PANEL (CALCIUM TOTAL) (07/01/2023 11:43 AM CDT) Only the most recent of2 resultswithin the time period is included. Glucose 97 70 - 105 mg/dL [facility] ACCOUNT BILL BUN 10 5.3 - 18.7 mg/dL [facility] ACCOUNT BILL Creatinine 0.86 0.57 - 1.11 mg/dL [facility] ACCOUNT BILL eGFR by CKD-EPI >90 >=90 mL/min/1.7 3 m2 [facility] ACCOUNT BILL Sodium 141 136 - 145 mmol/L [facility] ACCOUNT BILL Potassium 4.2 3.5 - 5.1 mmol/L [facility] ACCOUNT BILL Chloride 115(H) 98 - 107 mmol/L [facility] ACCOUNT BILL CO2 21(L) 22 - 29 mmol/L [facility] ACCOUNT BILL Calcium 9.4 8.4 - 10.4 mg/dL [facility] ACCOUNT BILL Comment:FASTING Blood BLOOD SPECIMEN / Unknown 07/01/2023 11:43 AM CDT 07/01/2023 Narrative Resulting Agency Comment Lab Testing performed at: [address] [id number] Van Sosa MD LAB - CHEMISTRY ORD ERABLES Performing Organization Address [facility] Co de Phone Number [facility] ACCOUNT BILL [address] [place] [address] * MAGNESIUM BLOOD (07/01/2023 11:43 AM CDT) Only the most recent of2 resultswithin the time period is included. [facility] [address] Magnesium 2.2 1.6 - 2.6 mg/dL [facility] ACCOUNT BILL Comment: FASTING Blood BLOOD SPECIMEN / Unknown 07/01/2023 11:43 AM CDT 07/01/2023 Narrative Resulting Agency Comment Lab Testing performed at: [address] [id number] Van Sosa MD LAB - CHEMISTRY ORD ERABLES Performing Organization Address [facility] Co de Phone Number [facility] ACCOUNT BILL [address] [place] [address] * EKG 12-LEAD (07/01/2023 11:42 AM CDT) Only the most recent of3 resultswithin the time period is included. Ventricular Rate 68 BPM [facility] Atrial Rate 68 BPM [facility] P-R Interval 220 ms [facility] QRS Duration ms 128 ms [facility] Q-T Interval ms 432 ms [facility] QTC Calculation (Bezet) 459 ms [facility] Calculated P [place] 70 degrees [facility] Calculated R [place] 74 degrees [facility] Calculated T [place] 54 degrees [facility] Interpretation EKG SINUS RHYTHM WITH 1ST DEGREE A-V BLOCK NON-SPECIFIC INTRA-VENTRIC ULAR CONDUCTION BLOCK ABNORMAL ECG Confirmed by MD Yomi, Nitin ([id number]) on 07/06/2023 4:29:06 PM [facility] 07/01/2023 11:4 2 AM CDT 07/06/2023 4:29 PM CDT Van Sosa MD ECG ORDERABLES Performing Organization Address [facility]/ZIP Co de Phone Number [facility] MUSE * (ABNORMAL) DIGOXIN LEVEL (07/01/2023 11:42 AM CDT) Pathologist [facility] Digoxin <0.4(L) 0.5 - 0.9 ng/mL [facility] ACCOUNT BILL Comment: Concentrations above 2.0 ng/mL are generally considered toxic. Some overlap of toxic and non-toxic values have been reported. Detection Limit = 0.4 ng/mL . Therapeutic range is derived from 2013 ACCF/AHA Guidelines for the Management of Heart Failure. Verified by repeat analysis FASTING Blood BLOOD SPECIMEN / Unknown 07/01/2023 11:42 AM CDT 07/01/2023 Narrative Resulting Agency Comment Lab Testing performed at: [facility] [address] [facility] [id number] Brando Maya MD LAB - CHEMISTRY ORD ERABLES [facility] ACCOUNT BILL [address] [place] [address] * URINALYSIS - POINT OF CARE (06/20/2023 1:05 PM CDT) Clarity UA POCT Clear [facility] Color UA POCT Yellow [facility] Leukocyte UA Negative Negative [facility] Nitrite UA POCT Negative Negative [facility] Urobilinogen UA 0.2 0.1 - 1.[address] [facility] [address] [facility] Protein UA POCT Negative Negative [facility] pH UA 6.5 5.0 - 8.[address] [facility] Blood UA Negative Negative [facility] Specific Rhame UA POCT Negative 1.002 - 1.[address] [facility] Ketone UA Negative Negative [facility] Bilirubin UA POCT Negative Negative [facility] Glucose UA Negative Negative [facility] Urine URINE / Unknown 06/20/2023 1 :05 PM CDT Evangelina Waldron DIAMOND SANDER-CAR PUSHER LAB - POINT OF CARE ORDERABLES [facility] [address] [phone] * FL LOWER GI (07/30/2022 9:29 AM CDT) Anatomical Region Laterality Modality Abdomen Radio Fluoroscop y 07/30/2022 9:57 AM CDT Impressions 07/31/2022 7:35 AM CDT IMPRESSION: There is no imaging evidence of Hirschsprung disease although the evaluation of the distal rectum is limited. If there is persistent high clinical concern for Hirschsprung's disease, tissue sampling may be helpful. > Dictated by Martha Gordon MD (radiology ct technologist). I, Kenny Quinteros MD have personally reviewed and interpreted this examination/study. > Interpreting Provider: Kenny Quinteros MD on 07/31/2022 7:35 AM Narrative 07/31/2022 7:35 AM CDT PROCEDURE: FL LOWER GI DATE/TIME OF EXAM: 07/30/2022 9:30 AM CLINICAL INFORMATION: None relevant/not provided if blank. INDICATION: Q43.1: Hirschsprung's disease K59.00: Constipation, unspecified R10.84: Generalized abdominal pain rectum biopsy showed Hirschsprung disease at 6-week-old. COMPARISON: None. TECHNIQUE: A rectal tube was inserted following which a contrast medium (barium) was passed into the colon. Serial fluoroscopic images were taken as contrast media passed through the colon. FLUOROSCOPY DOSE: 27 seconds Reference air kerma (ka,r). FLUOROSCOPY TIME: 27 seconds FINDINGS: The caliber and contour of the colon appeared normal.Specifically recto-sigmoid ratio appears to be normal although the evaluation of the distal rectum diameter is limited by the inflated balloon in place. No obstruction or ulceration was seen. No filling defects or mass lesions were identified. Procedure Note Kenny Quinteros MD - 07/31/2022 PROCEDURE: FL LOWER GI DATE/TIME OF EXAM: 07/30/2022 9:30 AM CLINICAL INFORMATION: None relevant/not provided if blank. INDICATION: Q43.1: Hirschsprung's disease K59.00: Constipation,unspecified R10.84: Generalized abdominal pain rectum biopsy showed Hirschsprung disease at 6-week-old. COMPARISON: None. TECHNIQUE: A rectal tube was inserted following which a contrast medium (barium)was passed into the colon. Serial fluoroscopic images were taken as contrast media passed through the colon. FLUOROSCOPY DOSE: 27 seconds Reference air kerma (ka,r). FLUOROSCOPY TIME: 27 seconds FINDINGS: The caliber and contour of the colon appeared normal.Specifically recto-sigmoid ratio appears to be normal although the evaluation of the distal rectum diameter is limited by the inflated balloon in place. No obstruction or ulceration was seen. No filling defects or mass lesionswere identified. IMPRESSION: There is no imaging evidence of Hirschsprung disease although the evaluation of the distal rectum is limited. If there is persistent high clinical concern for Hirschsprung's disease, tissue sampling may be helpful. > Dictated by Martha Gordon MD (radiology ct technologist). IKenny MD have personally reviewed and interpreted this examination/study. > Interpreting Provider: Kenny Quinteros MD on 07/31/2022 7:35 AM Ken Paco Brendan [employer] S[employer]ER-[employer] PUSHER FLUOROSCOPY O RDERABLES * HELICOBACTER PYLORI UREA BREATH TEST (07/02/2022 2:52 PM CDT) Helicobacter pylori Breath Negative Negative [facility] ACCOUNT BILL Microbiology BREATH / Unknown 07/02/2022 2:52 PM CDT 07/02/2022 Narrative Resulting Agency Comment Lab Testing performed at: [facility] [place] [address] [facility] [phone] Ken Cardona DIAMOND S[facility]ER[facility] LAB - MICROBI OLOGY ORDERABLES [facility] ACCOUNT BILL [address] [place] [address] * ECHO STRESS EXERCISE COLOR FLOW AND DOPPLER (04/16/2022 3:45 PM GLASS VIAL FILLER) BSA 2.19 m2 SSM CV FUJ I PACS Target HR 161 bpm [facility] FUJ I PACS Max Age Predicted HR 189 bpm [facility] FUJI PACS Base ST Depression (mm) 0 mm [facility] CV FUJI PACS Angina Index 0 [facility] CV FUJI PACS Pearl Treadmill Score 6 SSM CV FUJI PACS Exercise duration (min) 6 min S[facility] CV FUJI PACS Exercise duration (sec) 6 sec SSM CV FUJI PACS Peak METS Achieved 7.2 METS SSM CV FUJI PACS Target HR Percent 94 % SSM CV FUJI PACS Baseline HR 79 bpm SSM CV F UJI PACS Stress peak HR 151 bpm SSM C V FUJI PACS Max HR Percent 80 % SSM C V FUJI PACS Baseline BP 121/46 mmHg SSM CV F UJI PACS Post peak BP 154/55 mmHg S[facility] CV FUJI PACS ST Depression (mm) 0 mm SSM CV FUJI PACS Actual / Predicted METS 67.5 % SSM CV FUJI PACS Anatomical Region Laterality Modality Ultrasound Addenda Addendum by Nata Villar DO on 07/08/2022 2:45 PM CDT Left Ventricle: Left ventricle size is normal. Normal systolic function with a visually estimated EF of 60 - 65%. Normal wall motion. Stress: A Brody protocol stress test was performed. The patient reached stage 2 of the protocol after exercising for 6 min and 6 sec had a maximal HR of 151 bpm (80 % of MPHR) 7.2 METS. The test was stopped because the patient experienced fatigue. Stress ECG: No clinically relevant ST deviation was noted. The ECG was not diagnostic due to failure to achieve 85% MAPHR. Resting ECG: Resting ECG shows no clinically relevant ST-segment deviation. Post-stress: Left ventricle cavity appears normal post-stress. The left ventricle systolic function is normal post-stress. The post-stress echo showed normal wall motion. Submaximal stress test. Patient unable to achieve target heart rate. Achieved 80% PMHR, no pain, no ECG changes No stress-induced wall motion abnormalities. Negative stress test at workload achieved. Left Ventricle Left ventricle size is normal. Normal systolic function with a visually estimated EF of 60 - 65%. Normal wall motion. Right Ventricle Right ventricle size is normal. Normal systolic function. Study Details Study quality was excellent. A limited 2D, color Doppler, spectral Doppler and M-mode echocardiogram was performed. The apical and parasternal views were obtained. Resting ECG Sinus rhythm Resting ECG shows no clinically relevant ST-segment deviation. Stress Findings A Brody protocol stress test was performed. Overall, the patient's exercise capacity was moderately impaired for their age. The patient reached stage 2 of the protocol after exercising for 6 min and 6 sec had a maximal HR of 151 bpm (80 % of MPHR) 7.2 METS. The patient experienced no angina during the test. The test was stopped because the patient experienced fatigue. Blood pressure demonstrated a normal response and heart rate demonstrated a normal response to stress. The patient's heart rate recovery was normal. Stress ECG No clinically relevant ST deviation was noted. There were no arrhythmias during stress. There were no arrhythmias during recovery. The ECG was not diagnostic due to failure to achieve 85% MAPHR. Echo Post Stress Left ventricle cavity appears normal post-stress. The left ventricle systolic function is normal post-stress. The post-stress echo showed normal wall motion. Brando Maya MD ECHO CUPID * B-TYPE NATRIURETIC PEPTIDE (03/25/2022 2:52 PM GLASS VIAL FILLER) BNP 7.0 0.0 - 100.0 pg/mL [facility] ACCOUNT BILL Comment: Siemens ADVIA XLerantaur XP methodology FASTING Blood BLOOD SPECIMEN / Unknown 03/25/2022 2:52 PM GLASS VIAL FILLER 03/25/2022 Narrative Resulting Agency Comment Lab Testing performed at: [facility] [place] [address] [facility] [id number] Brando Maya MD LAB - CHEMISTRY ORD ERABLES Performing Organization Address [facility] Co de Phone Number [facility] ACCOUNT BILL [address] [place] [address] * (ABNORMAL) LIPID PROFILE (03/25/2022 2:52 PM GLASS VIAL FILLER) Cholesterol 178 100 - 199 mg/dL [facility] ACCOUNT BILL Triglycerides 117 0 - 149 mg/dL [facility] ACCOUNT BILL HDL Cholesterol 38(L) >39 mg/dL [facility] ACCOUNT [facility] VLDL Calculated 21 5 - 40 mg/dL [facility] ACCOUNT BILL LDL Calculated 119(H) 0 - 99 mg/dL [facility] ACCOUNT BILL Comment NOT AVAILABLE [facility] ACCOUNT BILL Comment: FASTING Result cannot be obtained for this observation. Blood BLOOD SPECIMEN / Unknown 03/25/2022 2:52 PM GLASS VIAL FILLER 03/25/2022 Narrative Resulting Agency Comment Lab Testing performed at: [facility] [address] [place] [phone] Brando Maya MD LAB - CHEMISTRY ORD ERABLES Performing Organization Address [facility] Co de Phone Number [facility] ACCOUNT BILL [address] [place] [address] * URINALYSIS MICROSCOPIC ONLY REFLEXED (03/19/2022 11:02 AM GLASS VIAL FILLER) WBC UA 0-5 0 - 5 /hpf [facility] ACCOUNT BILL RBC UA 0-2 0 - 2 /hpf [facility] ACCOUNT BILL Epithelial Cells (non renal) 0-10 0 - 10 /hpf [facility] ACCOUNT BILL Epithelial Cells (renal) NOT AVAILABLE [facility] ACCOUNT BILL Comment:Result cannot be obt ained for this observation. Casts ua None seen None seen /lpf [facility] ACCOUNT BILL Casts UA NOT AVAILABLE [facility] ACCOUNT BILL Comment:Result cannot be obt ained for this observation. Crystals UA NOT AVAILABLE [facility] ACCOUNT BILL Comment:Result cannot be obt ained for this observation. Crystals UA NOT AVAILABLE [facility] ACCOUNT BILL Comment:Result cannot be obt ained for this observation. Mucus UA NOT AVAILABLE [facility] ACCOUNT BILL Comment:Result cannot be obt ained for this observation. Bacteria UA None seen None seen/Few [facility] ACCOUNT BILL Yeast UA NOT AVAILABLE [facility] ACCOUNT BILL Comment:Result cannot be obt ained for this observation. Trichomonas UA NOT AVAILABLE [facility] ACCOUNT BILL Comment:Result cannot be obt ained for this observation. Comment Urine NOT AVAILABLE [facility] ACCOUNT BILL Comment: FASTING Result cannot be obtained for this observation. 03/19/2022 11:0 2 AM GLASS VIAL FILLER 03/19/2022 Narrative Resulting Agency Comment Lab Testing performed at: [address] [phone] Kelly Dunn DIAMOND SANDER-CAR PUSHER LAB - URIN ALYSIS ORDERABLES Performing Organization Address [facility] Co de Phone Number [facility] ACCOUNT BILL [address] [place] [address] * IRON + TIBC + FERRITIN (03/19/2022 11:02 AM GLASS VIAL FILLER) TIBC 281 250 - 450 ug/dL [facility] ACCOUNT BILL UIBC 236 131 - 425 ug/dL [facility] ACCOUNT BILL Iron 45 27 - 159 ug/dL [facility] ACCOUNT BILL Iron Saturation 16 15 - 55 % [facility] ACCOUNT BILL Ferritin 110 15 - 150 ng/mL [facility] ACCOUNT BILL Comment:FASTING Blood BLOOD SPECIMEN / Unknown 03/19/2022 11:02 AM GLASS VIAL FILLER 03/19/2022 Narrative Resulting Agency Comment Lab Testing performed at: [facility] [phone] Kelly Dunn DIAMOND SANDER-CAR PUSHER LAB - CHEM ISTRY ORDERABLES Performing Organization Address [facility] de Phone Number [facility] ACCOUNT BILL [address] [place] [address] * URINALYSIS REFLEX MICROSCOPIC REFLEX CULTURE (03/19/2022 11:02 AM GLASS VIAL FILLER) Specific Rhame UA 1.013 1.005 - 1.030 [facility] ACCOUNT BILL pH UA 7.0 5.0 - 7.5 [facility] ACCOUNT BILL Color UA Yellow Yellow [facility] ACCOUNT BILL Appearance Clear Clear [facility] ACCOUNT BILL Leukocyte UA Negative Negative [facility] ACCOUNT BILL Protein UA Negative Negative/Tra ce [facility] ACCOUNT BILL Glucose UA Negative Negative [facility] ACCOUNT BILL Ketone UA Negative Negative [facility] ACCOUNT BILL Occult Blood Urine Negative Negative [facility] ACCOUNT BILL Bilirubin UA Negative Negative [facility] ACCOUNT BILL Urobilinogen 0.2 0.2 - 1.0 mg/dL [facility] ACCOUNT BILL Nitrite UA Negative Negative [facility] ACCOUNT BILL Microscopic Examination Urine [facility] ACCOUNT BILL Comment:Microscopic follows if indicated. Microscopic Examination Urine See below: [facility] ACCOUNT BILL Comment: Microscopic was indicated and was performed. FASTING Urinalysis Reflex [facility] ACCOUNT BILL Comment: This specimen will not reflex to a Urine Culture. FASTING Urine URINE SPECIMEN OBTAINED BY CLEAN CATCH PROCEDURE / Unknown 03/19/2022 11:02 AM GLASS VIAL FILLER 03/19/2022 Narrative Resulting Agency Comment Lab Testing performed at: [facility] [phone] Kelly Dunn APRN-KATIE LAB - URIN ALYSIS ORDERABLES [facility] ACCOUNT BILL [address] [place] [address] * HEMOGLOBIN A1C (HgbA1C) (03/19/2022 11:02 AM GLASS VIAL FILLER) Hemoglobin A1c 5.3 4.8 - 5.6 % [facility] ACCOUNT BILL Comment: . Prediabetes: 5.7 - 6.4 Diabetes: >6.4 Glycemic control for adults with diabetes: <7.0 FASTING Blood BLOOD SPECIMEN / Unknown 03/19/2022 11:02 AM GLASS VIAL FILLER 03/19/2022 Narrative Resulting Agency Comment Lab Testing performed at: [facility] [phone] Kelly Dunn DIAMOND SANDER-CAR PUSHER LAB - CHEM ISTRY ORDERABLES Performing Organization Address [facility] Co de Phone Number [facility] ACCOUNT BILL [address] [place] [address] * (ABNORMAL) CBC W/O DIFFERENTIAL (03/19/2022 11:02 AM GLASS VIAL FILLER) WBC 11.2(H) 3.4 - 10.8 x10E3/uL [facility] ACCOUNT BILL RBC 4.76 3.77 - 5.28 x10E6/uL [facility] ACCOUNT BILL Hemoglobin 13.0 11.1 - 15.9 g/dL [facility] ACCOUNT BILL Hematocrit 40.6 34.0 - 46.6 % [facility] ACCOUNT BILL MCV 85 79 - 97 fL [facility] ACCOUNT BILL MCH 27.3 26.6 - 33.0 pg [facility] ACCOUNT BILL MCHC 32.0 31.5 - 35.7 g/dL [facility] ACCOUNT BILL RDW 12.9 11.7 - 15.4 % [facility] ACCOUNT BILL Platelet Count 449 150 - 450 x10E3/uL [facility] ACCOUNT BILL nRBC NOT AVAILABLE [facility] ACCOUNT BILL Comment: FASTING Result cannot be obtained for this observation. Blood BLOOD SPECIMEN / Unknown 03/19/2022 11:02 AM GLASS VIAL FILLER 03/19/2022 Narrative Resulting Agency Comment Lab Testing performed at: [facility] [phone] Kelly Dunn [facility] LAB - PAYAM TOLOGY ORDERABLES Performing Organization Address [facility]/ZIP Co de Phone Number [facility] ACCOUNT BILL [address] [place] [address] * (ABNORMAL) COMPREHENSIVE METABOLIC PANEL (03/19/2022 11:02 AM GLASS VIAL FILLER) Glucose 103(H) 70 - 99 mg/dL [facility] ACCOUNT BILL BUN 7 6 - 20 mg/dL [facility] ACCOUNT BILL Creatinine 0.91 0.57 - 1.00 mg/dL [facility] ACCOUNT BILL eGFR by CKD-EPI 86 >59 mL/min/1.7 3 [facility] ACCOUNT BILL BUN/Creatinine Ratio 8(L) 9 - 23 [facility] ACCOUNT BILL Sodium 143 134 - 144 mmol/L [facility] ACCOUNT BILL Potassium 4.9 3.5 - 5.2 mmol/L [facility] ACCOUNT BILL Chloride 106 96 - 106 mmol/L [facility] ACCOUNT BILL CO2 24 20 - 29 mmol/L [facility] ACCOUNT BILL Calcium 9.6 8.7 - 10.2 mg/dL [facility] ACCOUNT BILL Protein Total 6.6 6.0 - 8.5 g/dL [facility] ACCOUNT BILL Albumin 4.4 3.8 - 4.8 g/dL [facility] ACCOUNT BILL Globulin Total 2.2 1.5 - 4.5 g/dL [facility] ACCOUNT BILL Albumin/Globulin Ratio 2.0 1.2 - 2.2 [facility] ACCOUNT BILL Bilirubin Total 0.2 0.0 - 1.2 mg/dL [facility] ACCOUNT BILL Alkaline Phosphatase 74 44 - 121 IU/L [facility] ACCOUNT BILL AST 10 0 - 40 IU/L [facility] ACCOUNT BILL ALT 15 0 - 32 IU/L [facility] ACCOUNT BILL Comment:FASTING Blood BLOOD SPECIMEN / Unknown 03/19/2022 11:02 AM GLASS VIAL FILLER 03/19/2022 Narrative Resulting Agency Comment Lab Testing performed at: [address] [phone] Kelly Dunn DIAMOND SANDER-CAR PUSHER LAB - CHEM ISTRY ORDERABLES [facility] ACCOUNT BILL [address] [place] [address] * TSH+FREE T4+FREE T3 (03/19/2022 11:01 AM GLASS VIAL FILLER) TSH 1.910 0.450 - 4.500 uIU/mL [facility] ACCOUNT BILL T3 Free 3.2 2.0 - 4.4 pg/mL [facility] ACCOUNT BILL T4 Free 1.15 0.82 - 1.77 ng/dL [facility] ACCOUNT BILL Comment:FASTING Blood BLOOD SPECIMEN / Unknown 03/19/2022 11:01 AM GLASS VIAL FILLER 03/19/2022 Narrative Resulting Agency Comment [facility] performed at: [facility] [phone] Kelly Dunn DIAMOND SANDER-CAR PUSHER LAB - CHEM ISTRY ORDERABLES Performing Organization Address [facility] Co de Phone Number [facility] ACCOUNT BILL [address] [place] [address] * ZINC BLOOD (03/19/2022 11:01 AM GLASS VIAL FILLER) Zinc, Plasma or Serum 65 44 - 115 ug/dL [facility] ACCOUNT BILL Comment: Detection Limit = 5 FASTING Blood BLOOD SPECIMEN / Unknown 03/19/2022 11:01 AM GLASS VIAL FILLER 03/19/2022 Narrative [facility] ACCOUNT BILL - 03/22/2022 9:07 PM GLASS VIAL FILLER Test(s) [id number], Plasma or Serum was developed and its performance characteristics determined by [facility]. It has not been cleared or approved by the Food and Drug Administration. Resulting Agency Comment Lab Testing performed at: [facility] [phone] Kelly Dunn DIAMOND SANDER-CAR PUSHER LAB - CHEM ISTRY ORDERABLES Performing Organization Address [facility] Co de Phone Number [facility] ACCOUNT BILL [address] [place] [address] * VITAMIN A (03/19/2022 11:01 AM GLASS VIAL FILLER) Vitamin A 33.3 18.9 - 57.3 ug/dL [facility] ACCOUNT BILL Comment: Reference intervals for vitamin A determined from [facility] internal studies. Individuals with vitamin A less than 20 ug/dL are considered vitamin A deficient and those with serum concentrations less than 10 ug/dL are considered severely deficient. . This test was developed and its performance characteristics determined by [facility]. It has not been cleared or approved by the Food and Drug Administration. FASTING Blood BLOOD SPECIMEN / Unknown 03/19/2022 11:01 AM GLASS VIAL FILLER 03/19/2022 Narrative Resulting Agency Comment Lab Testing performed at: [facility] [address] [phone] Kelly Dunn DIAMOND SANDER-CAR PUSHER LAB - CHEM ISTRY ORDERABLES Performing Organization Address [facility] Co de Phone Number [facility] ACCOUNT BILL [address] [place] [address] * VITAMIN B6 (03/19/2022 11:01 AM GLASS VIAL FILLER) Vitamin B6 4.8 3.4 - 65.2 ug/L [facility] ACCOUNT BILL Comment: Deficiency: <3.4 Marginal: 3.4 - 5.1 Adequate: >5.1 FASTING Blood BLOOD SPECIMEN / Unknown 03/19/2022 11:01 AM GLASS VIAL FILLER 03/19/2022 Narrative [facility] ACCOUNT BILL - 03/22/2022 7:07 AM GLASS VIAL FILLER Test(s) [id number] B6 was developed and its performance characteristics determined by [facility]. It has not been cleared or approved by the Food and Drug Administration. Resulting Agency Comment Lab Testing performed at: [facility] [address] [phone] Kelly Dunn DIAMOND SANDER-CAR PUSHER LAB - CHEM ISTRY ORDERABLES Performing Organization Address [facility] Co de Phone Number [facility] ACCOUNT BILL [address] [place] [address] * (ABNORMAL) VITAMIN D 25-HYDROXY (03/19/2022 11:01 AM GLASS VIAL FILLER) Vitamin D, 25 Hydroxy 16.3(L) 30.0 - 100.0 ng/mL [facility] ACCOUNT BILL Comment: Vitamin D deficiency has been defined by the Evans of Medicine and an Endocrine Society practice guideline as a level of serum 25-OH vitamin D less than 20 ng/mL (1,2). The Endocrine Society went on to further define vitamin D insufficiency as a level between 21 and 29 ng/mL (2). 1. IOM (Evans of Medicine). 2010. Dietary reference intakes for calcium and D. [place]: The National Academies Press. 2. Kamryn VILLEDA, Janet PRINGLE, Rand DELGADO, et al. Evaluation, treatment, and prevention of vitamin D deficiency: an Endocrine Society clinical practice guideline. JCEM. 2010; 96(7):1911-30. FASTING Blood BLOOD SPECIMEN / Unknown 03/19/2022 11:01 AM GLASS VIAL FILLER 03/19/2022 Narrative Resulting Agency Comment Lab Testing performed at: [facility] [place] [address] [facility] [phone] Kelly Dunn DIAMOND SANDER-CAR PUSHER LAB - CHEM ISTRY ORDERABLES [facility] ACCOUNT BILL [address] [place] [address] * VITAMIN B12 (03/19/2022 11:01 AM GLASS VIAL FILLER) Vitamin B12 383 232 - 1,245 pg/mL [facility] ACCOUNT BILL Comment:FASTING Blood BLOOD SPECIMEN / Unknown 03/19/2022 11:01 AM GLASS VIAL FILLER 03/19/2022 Narrative Resulting Agency Comment Lab Testing performed at: [facility] [place] [address] [facility] [phone] Kelly Dunn DIAMOND SANDER-CAR PUSHER LAB - CHEM ISTRY ORDERABLES Performing Organization Address [facility] Co de Phone Number [facility] ACCOUNT BILL [address] [place] [address] * (ABNORMAL) VITAMIN B12 FOLATE PANEL (03/19/2022 11:01 AM GLASS VIAL FILLER) Vitamin B12 336 232 - 1,245 pg/mL [facility] ACCOUNT BILL Folate 2.9(L) >3.0 ng/mL [facility] ACCOUNT BILL Comment: A serum folate concentration of less than 3.1 ng/mL is considered to represent clinical deficiency. FASTING Blood BLOOD SPECIMEN / Unknown 03/19/2022 11:01 AM GLASS VIAL FILLER 03/19/2022 Narrative Resulting Agency Comment Lab Testing performed at: [facility] [place] [address] [facility] [id number] Kelly Dunn DIAMOND SANDER-CAR PUSHER LAB - CHEM ISTRY ORDERABLES Performing Organization Address [facility]/ZIP Co de Phone Number [facility] ACCOUNT BILL [address] [place] [address] * AUDIOLOGY/TYMPANOMETRY ORDER (03/09/2021 3:35 PM GLASS VIAL FILLER) Natalie Romerodamon Tierney AUDIOLOGY SERVICES ORDERABLES * AUDIOLOGY/TYMPANOMETRY ORDER (12/25/2020 1:08 PM CDT) Natalie Daughertyariel Tierney AUDIOLOGY SERVICES ORDERABLES * CARDIAC PACER/DEFIB ORDER (08/24/2019) Only the most recent of2 resultswithin the time period is included. 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 Specialty Start Date End Date June Waldron MD [address] [facility] [address] [place] [id number] PCP - General Internal Medicine 07/30/22 Brando Maya MD [address] [facility] [address] [place] [address] Cardiovascular Disease 07/01/20 Van Sosa MD [address] [facility] [address] [place] [address] Electrophysiology 07/14/20 Alexus Kirkland MD [address] [facility] [address] [place] [address] Obstetrics and Gynecology 07/14/20 Zuri García [place] [address] [place] [address] Referring Physician Neurology 06/20/23 Merlin Garibay MD [address] [facility] [address] [place] [address] Neurological Surgery 06/20/23
--- OUTSIDE RECORDS SUMMARY | 2024-05-13 14:34 | XMS_ITS ---
Author Organization [facility] Address [address] [facility] [address] [place] [address] Care Team Providers Care Head Of Sales And Marketing Name Role Phone Migration, Provider Unavailable Unavailable REASON FOR VISIT EMR-Nabil Encounters Encounter Location Date Provider Diagnosis [place] [id number] [facility] [address] [place], [place] [id number] 11/26/2023 Provider Migration Plan Of Treatment Medication Medication Name Sig Start Date Stop Date Notes PHENERGAN 25 MG TAB 25 MG TAB take 1 pill by mouth every 6 hrs as needed 11/11/2017 08/06/2019 *Reorder from [facility] for eRx and Interaction Alerts* Zofran ODT 8 mg disintegrating tablet [address] 1 tablet by translingual route every 8 hours for 2 days on top of the tongue where it will dissolve, then swallow ORAL 12/22/2017 12/23/2017 *Reorder from [facility] for eRx and Interaction Alerts* Macrobid 100 MG take 1 capsule by oral route 2 times every day with food Oral 07/15/2015 08/06/2019 Pyridium 200 MG take 1 tablet by ora l route 3 times every day after meals as needed Oral 07/09/2016 08/06/2019 Flagyl 500 MG take 1 tablet by ora l route every 12 hours Oral 07/10/2015 08/06/2019 *Pick strength-form from [facility] for eRX* Diflucan 150 MG take 1 tablet by ora l route once Oral 07/10/2015 08/06/2019 Progress Notes * Ashlee RAMOSDOB:1990 (33 yo F)Acc No.[id number]:11/26/2023 Patient: Thom RODGERSary :1990 A ge:33 Y S ex:Female Address:[address] [place], [address] * Refills Stop Diflucan Tablet, 150 MG, Oral, 1, take 1 tablet by oral route once Stop Diflucan Tablet, 150 MG, Oral, 2, swallow 1 pill by oral route every day now, then repeat in 3 days Stop Flagyl Tablet, 500 MG, Oral, 14, take 1 tablet by oral route every 12 hours Stop Macrobid Capsule, 100 MG, Oral, 10, take 1 capsule by oral route 2 times every day with food Stop Pyridium Tablet, 200 MG, Oral, 6, take 1 tablet by oral route 3 times every day after meals as needed Stop PHENERGAN 25 MG TAB, 25 MG TAB, 30, take 1 pill by mouth every 6 hrs as needed Stop Zofran ODT 8 mg disintegrating tablet TAB RAPDIS, 8 mg, ORAL, 20, place 1 tablet by translingual route every 8 hours for 2 days on top of the tongue where it will dissolve, then swallow Subjective: * Chief Complaints: * E MR-Nabil * Medical History: * Surgical History: * Hospitalization/Major Diagno stic Procedure: * Medications: Objective: * Vitals: * Physical Examination: Assessment: Plan: * Treatment: * Procedure Codes: * * Date:
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
--- OUTSIDE RECORDS SUMMARY | 2024-05-13 14:34 | XMS_ITS | Referral Summary ---
Author Organization [facility] Address [address] [facility] [place] [address] Care Team Providers Care Bed Teacher Name Role Phone Brando Maya MD Unavailable [phone] Van Sosa MD Unavailable [phone] Alexus Kirkland MD Unavailable Unavailable June Waldron MD Primary Care Provider [phone] Zuri García MD Unavailable [phone] Merlin Garibay MD Unavailable [phone] Source Comments [facility],non-owned Affiliates and Associated Physician Practices is amultiple site organization consisting of ambulatory clinics and hospital sitesin [place], [place], [place] and [place]. This disclosure is being madepursuant to the Care Everywhere program and may not contain all information available regarding this patient. Last updated 17.[facility] Encounters Date Type Department Care Team Description 05/01/2024 11:45 AM FORM BUILDER HELPER Office Visit [facility] Heart & Vascular Care [address] [place] [address] [address] [place] [address] Brando Maya MD Paroxysmal atrial fibrillation (HCC) (Primary Dx); PAF (paroxysmal atrial fibrillation) (HCC); Essential hypertension 04/17/2024 Refill [facility] [address] [place] [address] [address] [place] [address] Denise Cardona PART TIME-COAT CHECK ATTENDANT Refill Request 04/10/2024 Telephone [facility] - Internal Medicine [address] [place] [address] [address] [place] [phone] June Waldron MD Medication Problem 03/30/2024 Refill [facility] Vascular [address] [place] [address] Denise Cardona PART TIME-COAT CHECK ATTENDANT Refill Request; Scheduling 03/01/2024 Telephone [facility] - Internal Medicine [address] [place] [address] [address] [place] [address] June Waldron MD Scheduling from Last 3 Months Allergies Active Allergy [...] Active vitamin D, ergocalciferol, (Drisdol) 1.25 MG (65222 UT) capsuleIndication s:Vitamin D deficiency Take 1 capsule by mouth once a week 12 capsule 4 Active haloperidol (Haldol) 5 MG tablet TAKE 1 TABLET BY MOUTH TWICE DAILY FOR 9 DAYS 4 Active fluticasone propionate (Flonase) 50 MCG/ACT nasal spray [place] 2 (two) sprays into each nostril once [...] mg by mouth every 12 hours 04/16/19 25 Discontinu ed(List Clean-Up) LORazepam (ATIVAN) 0.5 MG tablet Take 1 (one) tablet by mouth 2 times daily as needed 2 04/16/19 25 Discontinu ed(List Clean-Up) DULoxetine HCl 40 MG Take 1 capsule by mouth once daily 4 04/16/19 25 Discontinu ed(List Clean-Up) haloperidol (Haldol) 10 MG [...] increased intracrani al pressure 12/16/2022 12/26/2022 S/P CEMENT DESPATCH OPERATOR shunt 12/12/2022 06/20/2023 Visual field defect [...] at age 16 Bipolar 1 disorder 10/12/2020 2 Overview (12/25/2020): Last Assessment & Plan: [facility] 450 mg Paroxysmal atrial fibrillation 07/01/2020 05/01/2024 CAD in [place] artery 07/01/2020 022 Constipation 10/08/2013 01/22/2021 Immunizations Name Administration Dates Next Due COVID PFIZER BIVALENT 12Y+ 30mcg/0.3ML Covid Moderna primary monova lent 12+ yr [...] TD (AGE 7-ADULT) 09/08/2004 TDAP (7yrs+) 10/19/2021 Social History Tobacco Use Types Packs/Day [...] Comments Blood Pressure 120/72 05/01/2024 11:41 AM FORM BUILDER HELPER Pulse 84 05/01/2024 11:41 AM FORM BUILDER HELPER Temperature 36.1 C (96.9 F) 06/20/2023 12:45 PM CDT Respiratory Rate - - Oxygen Saturation 99% 06/20/2023 12: 45 PM CDT Inhaled Oxygen Concentration - - Weight 108.1 kg (238 lb 6.4 oz) 025 11:41 AM FORM BUILDER HELPER Height 165.1 cm (5' 5 ) 06/20/2023 12:4 5 PM CDT Body Mass Index 39.67 06/20/2023 12:45 PM CDT Plan of Treatment Upcoming Encounters Date Type Department Care Team (Late st Contact Info) Description 05/28/2024 11:00 AM CDT Office Visit [facility] Medical [facility] - Internal Medicine [address] [facility] [address] [place] [address] Tiera Montes, PART TIME-COAT CHECK ATTENDANT [address] [address] 05/01/2025 11:30 AM FORM BUILDER HELPER Office Visit [facility] Heart & Vascular Care [address] [facility] [address] [place], [place] [id number] Brando Maya MD [address] [place] [address] [facility] [address] [place], [place] [phone] Procedures Procedure Name Priority Date/Time Associated Diagnosis Comments EKG 12-LEAD Routine 05/01/2024 1:03 PM FORM BUILDER HELPER Paroxysmal atrial fibrillation (HCC) from Last 3 Months Care Teams Bed Teacher Relationship Specialty Start Date End Date June Waldron MD [address] [facility] [address] [place] [address] PCP - General Internal Medicine 07/30/22 Brando Maya MD [address] [facility] [place] [address] [place] [address] Cardiovascular Disease 07/01/20 Van Sosa MD [address] [facility] [place] [address] [place] [address] Electrophysiology 07/14/20 Alexus Kirkland MD [address] [facility] [place] [address] [place] [address] Obstetrics and Gynecology 07/14/20 Zuri García MD [address] [place] [address] Referring Physician Neurology 06/20/23 Merlin Garibay MD [address] [facility] [address] [place] [address] Neurological Surgery 06/20/23
--- OUTSIDE RECORDS SUMMARY | 2024-05-13 15:21 | XMS_ITS | Patient Health Summary ---
Author Organization [facility] Address [address] [facility] [place] [address] Care Team Providers Care Music Industry Internship Name Role Phone Brando Maya MD Unavailable [phone] Van Sosa MD Unavailable [phone] Alexus Kirkland MD Unavailable Unavailable June Waldron MD Primary Care Provider Zuri García MD Unavailable Merlin Garibay MD Unavailable [phone] Note from [facility],non-owned Affiliates and Associated Physician Practices is amultiple site organization consisting of ambulatory clinics and hospital sitesin [place], [place], [place] and [place]. This disclosure is being madepursuant to the Care Everywhere program and may not contain all information available regarding this patient. Last updated 17.[facility] Allergies * Hydromorphone(Anaphylaxis) -High Criticality * Metoprolol(GI [...] * vitamin D, ergocalciferol, (Drisdol) 1.25 MG (04166 UT) capsule(Started 05/25/2023) Take 1 capsule by mouth once a week * haloperidol (Haldol) 5 MG tablet(Started 06/16/2023) TAKE 1 TABLET BY MOUTH TWICE DAILY FOR 9 DAYS * fluticasone propionate (Flonase) 50 MCG/ACT nasal spray(Started 06/20/2023) [place] 2 (two) sprays into each nostril once [...] increased intracrani al pressure 12/16/2022 12/26/2022 S/P WATER TREATMENT OPERATOR shunt 12/12/2022 06/20/2023 Visual field defect [...] Paroxysmal atrial fibrillation 07/01/2020 05/01/2024 CAD in [place] artery 07/01/2020 022 Constipation 10/08/2013 01/22/2021 Immunizations [...] Comments Blood Pressure 120/72 05/01/2024 11:41 AM BOARD SAW RUNNER Pulse 84 05/01/2024 11:41 AM BOARD SAW RUNNER Temperature 36.1 C (96.9 F) 06/20/2023 12:45 PM CDT Respiratory Rate - - Oxygen Saturation 99% 06/20/2023 12: 45 PM CDT Inhaled Oxygen Concentration - - Weight 108.1 kg (238 lb 6.4 oz) 025 11:41 AM BOARD SAW RUNNER Height 165.1 cm (5' 5 ) 06/20/2023 [...] Resulting Agency Comment Lab Testing performed at: [address] [phone] June Waldron MD LAB - MICROBIOLOGY O RDERABLES Performing Organization Address [facility] Co de Phone Number [facility] ACCOUNT BILL [address] [place] [address] * (ABNORMAL) URINALYSIS NO MICROSCOPIC NO CULTURE (09/21/2023 1:20 PM CDT) Specific [place] UA 1.010 1.005 - 1.030 [facility] ACCOUNT [...] Resulting Agency Comment Lab Testing performed at: [address] [phone] June Waldron MD LAB - URINALYSIS ORD ERABLES Performing Organization Address [facility] Co de Phone Number [facility] ACCOUNT BILL [address] [place] [address] * (ABNORMAL) BASIC METABOLIC PANEL (CALCIUM TOTAL) [...] Resulting Agency Comment Lab Testing performed at: [address] [phone] Van Sosa MD LAB - CHEMISTRY ORD ERABLES Performing Organization Address City/[facility] Co de Phone Number [facility] ACCOUNT BILL [address] [place] [address] * MAGNESIUM BLOOD (07/01/2023 11:43 AM CDT) Only the most recent of2 resultswithin the time period is included. [facility] Magnesium 2.2 1.6 - 2.6 mg/dL [facility] ACCOUNT BILL Comment: FASTING Blood BLOOD SPECIMEN / Unknown 07/01/2023 11:43 AM CDT 07/01/2023 Narrative Resulting Agency Comment Lab Testing performed at: [address] [id number] Van Sosa MD LAB - CHEMISTRY ORD ERABLES Performing Organization Address City/[facility] Co de Phone Number [facility] ACCOUNT BILL [address] [place] [address] * EKG 12-LEAD (07/01/2023 11:42 AM CDT) Only the most recent of3 resultswithin the time period is included. Ventricular Rate 68 BPM [facility] Atrial Rate 68 BPM [facility] P-R Interval 220 ms [facility] QRS Duration ms 128 ms [facility] Q-T Interval ms 432 ms [facility] QTC Calculation (Bezet) 459 ms [facility] Calculated P [place] 70 degrees [facility] Calculated R [place] 74 degrees [facility] Calculated T [place] 54 degrees [facility] Interpretation EKG SINUS RHYTHM WITH 1ST DEGREE A-V BLOCK NON-SPECIFIC INTRA-VENTRIC ULAR CONDUCTION BLOCK ABNORMAL ECG Confirmed by MD Yomi, Nitin ([id number]) on 07/06/2023 4:29:06 PM [facility] MUSE 07/01/2023 11:4 2 AM CDT 07/06/2023 4:29 PM CDT Van Sosa MD ECG ORDERABLES Performing Organization Address City/[facility]/ZIP Co de Phone Number [facility] MUSE * (ABNORMAL) DIGOXIN LEVEL (07/01/2023 11:42 AM CDT) Pathologist [facility] Digoxin <0.4(L) 0.5 - 0.9 ng/mL [facility] [...] Resulting Agency Comment Lab Testing performed at: [facility] [address] [facility] [phone] Brando Maya MD LAB - CHEMISTRY ORD ERABLES [facility] ACCOUNT BILL [address] [place] [address] * URINALYSIS - POINT OF CARE (06/20/2023 [...] Negative [facility] Specific [place] UA POCT Negative 1.002 - 1.[address] [facility] Ketone UA Negative Negative [facility] Bilirubin UA POCT Negative Negative [facility] Glucose UA Negative Negative [facility] Urine URINE / Unknown 06/20/2023 1 :05 PM CDT Evangelina Waldron TECHNOLOGY SALES CONSULTANT-CELL COVERER LAB - POINT OF CARE ORDERABLES [facility] [address] [phone] * FL LOWER GI (07/30/2022 9:29 AM [...] helpful. > Dictated by Martha Gordon MD (resident in diagnostic radiology). I, Kenny Quinteros MD have personally reviewed [...] helpful. > Dictated by Martha Gordon MD (resident in diagnostic radiology). IKenny MD have personally reviewed and interpreted this examination/study. > Interpreting Provider: Kenny Quinteros MD on 07/31/2022 7:35 AM Ken Paco Brendan TECHNOLOGY SALES CONSULTANT-CELL COVERER FLUOROSCOPY O RDERABLES * HELICOBACTER PYLORI UREA BREATH TEST (07/02/2022 2:52 PM CDT) Helicobacter pylori Breath Negative Negative [facility] ACCOUNT BILL Microbiology BREATH / Unknown 07/02/2022 2:52 PM CDT 07/02/2022 Narrative Resulting Agency Comment Lab Testing performed at: [facility] [address] [facility] [id number] Ken Cardona TECHNOLOGY SALES CONSULTANT-CELL COVERER LAB - MICROBI OLOGY ORDERABLES [facility] ACCOUNT BILL [address] [place] [address] * ECHO STRESS EXERCISE COLOR FLOW AND DOPPLER (04/16/2022 3:45 PM BOARD SAW RUNNER) BSA 2.19 m2 [facility] CV FUJ I [...] * B-TYPE NATRIURETIC PEPTIDE (03/25/2022 2:52 PM BOARD SAW RUNNER) BNP 7.0 0.0 - 100.0 pg/mL [facility] ACCOUNT BILL Comment: Siemens ADVIA [id number] XP methodology FASTING Blood BLOOD SPECIMEN / Unknown 03/25/2022 2:52 PM BOARD SAW RUNNER 03/25/2022 Narrative Resulting Agency Comment Lab Testing performed at: [facility] [address] [facility] [phone] Brando Maya MD LAB - CHEMISTRY ORD ERABLES Performing Organization Address [facility] Co de Phone Number [facility] ACCOUNT BILL [address] [place] [address] * (ABNORMAL) LIPID PROFILE (03/25/2022 2:52 PM BOARD SAW RUNNER) Cholesterol 178 100 - 199 mg/dL [facility] [...] BLOOD SPECIMEN / Unknown 03/25/2022 2:52 PM BOARD SAW RUNNER 03/25/2022 Narrative Resulting Agency Comment Lab Testing performed at: [facility] [address] [phone] Brando Maya MD LAB - CHEMISTRY ORD ERABLES Performing Organization Address [facility] Co de Phone Number [facility] ACCOUNT BILL [address] [place] [address] * URINALYSIS MICROSCOPIC ONLY REFLEXED (03/19/2022 11:02 AM BOARD SAW RUNNER) WBC UA 0-5 0 - 5 /hpf [...] for this observation. 03/19/2022 11:0 2 AM BOARD SAW RUNNER 03/19/2022 Narrative Resulting Agency Comment Lab Testing performed at: [address] [phone] Kelly Dunn TECHNOLOGY SALES CONSULTANT-CELL COVERER LAB - URIN ALYSIS ORDERABLES Performing Organization Address City/[facility] Co de Phone Number [facility] ACCOUNT BILL [address] [place] [address] * IRON + TIBC + FERRITIN (03/19/2022 11:02 AM BOARD SAW RUNNER) TIBC 281 250 - 450 ug/dL [facility] ACCOUNT BILL UIBC 236 131 - 425 ug/dL [facility] ACCOUNT BILL Iron 45 27 - 159 ug/dL [facility] ACCOUNT BILL Iron Saturation 16 15 - 55 % [facility] ACCOUNT BILL Ferritin 110 15 - 150 ng/mL [facility] ACCOUNT BILL Comment:FASTING Blood BLOOD SPECIMEN / Unknown 03/19/2022 11:02 AM BOARD SAW RUNNER 03/19/2022 Narrative Resulting Agency Comment Lab Testing performed at: [address] [phone] Kelly Dunn TECHNOLOGY SALES CONSULTANT-CELL COVERER LAB - CHEM ISTRY ORDERABLES Performing Organization Address [facility] de Phone Number [facility] ACCOUNT BILL [address] [place] [address] * URINALYSIS REFLEX MICROSCOPIC REFLEX CULTURE (03/19/2022 11:02 AM BOARD SAW RUNNER) Specific [place] UA 1.013 1.005 - 1.030 [facility] ACCOUNT [...] CATCH PROCEDURE / Unknown 03/19/2022 11:02 AM BOARD SAW RUNNER 03/19/2022 Narrative Resulting Agency Comment Lab Testing performed at: [facility] [id number] Kelly Dunn APRN-KATIE LAB - URIN ALYSIS ORDERABLES [facility] ACCOUNT BILL [address] [place] [address] * HEMOGLOBIN A1C (HgbA1C) (03/19/2022 11:02 AM BOARD SAW RUNNER) Hemoglobin A1c 5.3 4.8 - 5.6 % [facility] ACCOUNT BILL Comment: . Prediabetes: 5.7 - 6.4 Diabetes: >6.4 Glycemic control for adults with diabetes: <7.0 FASTING Blood BLOOD SPECIMEN / Unknown 03/19/2022 11:02 AM BOARD SAW RUNNER 03/19/2022 Narrative Resulting Agency Comment Lab Testing performed at: [facility] [phone] Kelly Dunn TECHNOLOGY SALES CONSULTANT-CELL COVERER LAB - CHEM ISTRY ORDERABLES Performing Organization Address City/[facility] Co de Phone Number [facility] ACCOUNT BILL [address] [place] [address] * (ABNORMAL) CBC W/O DIFFERENTIAL (03/19/2022 11:02 AM BOARD SAW RUNNER) WBC 11.2(H) 3.4 - 10.8 x10E3/uL [facility] [...] BLOOD SPECIMEN / Unknown 03/19/2022 11:02 AM BOARD SAW RUNNER 03/19/2022 Narrative Resulting Agency Comment Lab Testing performed at: [facility] [phone] Kelly Dunn [facility] - PAYAM TOLOGY ORDERABLES Performing Organization Address City/[facility]/ZIP Co de Phone Number [facility] ACCOUNT BILL [address] [place] [address] * (ABNORMAL) COMPREHENSIVE METABOLIC PANEL (03/19/2022 11:02 AM BOARD SAW RUNNER) Glucose 103(H) 70 - 99 mg/dL [facility] [...] BLOOD SPECIMEN / Unknown 03/19/2022 11:02 AM BOARD SAW RUNNER 03/19/2022 Narrative Resulting Agency Comment Lab Testing performed at: [address] [phone] Kelly Dunn TECHNOLOGY SALES CONSULTANT-CELL COVERER LAB - CHEM ISTRY ORDERABLES [facility] ACCOUNT BILL [address] [place] [address] * TSH+FREE T4+FREE T3 (03/19/2022 11:01 AM BOARD SAW RUNNER) TSH 1.910 0.450 - 4.500 uIU/mL [facility] ACCOUNT BILL T3 Free 3.2 2.0 - 4.4 pg/mL [facility] ACCOUNT BILL T4 Free 1.15 0.82 - 1.77 ng/dL [facility] ACCOUNT BILL Comment:FASTING Blood BLOOD SPECIMEN / Unknown 03/19/2022 11:01 AM BOARD SAW RUNNER 03/19/2022 Narrative Resulting Agency Comment [facility] [id number] Kelly Dunn TECHNOLOGY SALES CONSULTANT-CELL COVERER LAB - CHEM ISTRY ORDERABLES Performing Organization Address City/[facility] Co de Phone Number [facility] ACCOUNT BILL [address] [place] [address] * ZINC BLOOD (03/19/2022 11:01 AM BOARD SAW RUNNER) Zinc, Plasma or Serum 65 44 - 115 ug/dL [facility] ACCOUNT BILL Comment: Detection Limit = 5 FASTING Blood BLOOD SPECIMEN / Unknown 03/19/2022 11:01 AM BOARD SAW RUNNER 03/19/2022 Narrative [facility] ACCOUNT BILL - 03/22/2022 9:07 PM BOARD SAW RUNNER Test(s) 585212-[id number], Plasma or Serum was developed and its performance characteristics determined by [facility]. It has not been cleared or approved by the Food and Drug Administration. Resulting Agency Comment Lab Testing performed at: [facility] [phone] Kelly Dunn TECHNOLOGY SALES CONSULTANT-CELL COVERER LAB - CHEM ISTRY ORDERABLES Performing Organization Address [facility] Co de Phone Number [facility] ACCOUNT BILL [address] [place] [address] * VITAMIN A (03/19/2022 11:01 AM BOARD SAW RUNNER) Vitamin A 33.3 18.9 - 57.3 ug/dL [facility] ACCOUNT BILL Comment: Reference intervals for vitamin A determined from [facility] internal studies. Individuals with vitamin A less than 20 ug/dL are considered vitamin A deficient and those with serum concentrations less than 10 ug/dL are considered severely deficient. . This test was developed and its performance characteristics determined by [facility]. It has not been cleared or approved by the Food and Drug Administration. FASTING Blood BLOOD SPECIMEN / Unknown 03/19/2022 11:01 AM BOARD SAW RUNNER 03/19/2022 Narrative Resulting Agency Comment Lab Testing performed at: [facility] [address] [id number] Kelly Dunn TECHNOLOGY SALES CONSULTANT-CELL COVERER LAB - CHEM ISTRY ORDERABLES Performing Organization Address City/[facility] Co de Phone Number [facility] ACCOUNT BILL [address] [place] [address] * VITAMIN B6 (03/19/2022 11:01 AM BOARD SAW RUNNER) Vitamin B6 4.8 3.4 - 65.2 ug/L [facility] ACCOUNT BILL Comment: Deficiency: <3.4 Marginal: 3.4 - 5.1 Adequate: >5.1 FASTING Blood BLOOD SPECIMEN / Unknown 03/19/2022 11:01 AM BOARD SAW RUNNER 03/19/2022 Narrative [facility] ACCOUNT BILL - 03/22/2022 7:07 AM BOARD SAW RUNNER Test(s) [id number] B6 was developed and its performance characteristics determined by [facility]. It has not been cleared or approved by the Food and Drug Administration. Resulting Agency Comment Lab Testing performed at: [facility] [address] [phone] Kelly Dunn TECHNOLOGY SALES CONSULTANT-CELL COVERER LAB - CHEM ISTRY ORDERABLES Performing Organization Address [facility] Co de Phone Number [facility] ACCOUNT BILL [address] [place] [address] * (ABNORMAL) VITAMIN D 25-HYDROXY (03/19/2022 11:01 AM BOARD SAW RUNNER) Vitamin D, 25 Hydroxy 16.3(L) 30.0 - 100.0 ng/mL [facility] ACCOUNT BILL Comment: Vitamin D deficiency has been defined by the [place] of Medicine and an Endocrine Society practice guideline as a level of serum 25-OH vitamin D less than 20 ng/mL (1,2). The Endocrine Society went on to further define vitamin D insufficiency as a level between 21 and 29 ng/mL (2). 1. IOM ([place] of Medicine). 2010. Dietary reference intakes for calcium and D. [place]: The National Academies Press. 2. Kamryn VILLEDA, Janet PRINGLE, Rand DELGADO, et al. Evaluation, treatment, and prevention of vitamin D deficiency: an Endocrine Society clinical practice guideline. JCEM. 2010; 96(7):1911-30. FASTING Blood BLOOD SPECIMEN / Unknown 03/19/2022 11:01 AM BOARD SAW RUNNER 03/19/2022 Narrative Resulting Agency Comment Lab Testing performed at: [facility] [address] [facility] [phone] Kelly Dunn TECHNOLOGY SALES CONSULTANT-CELL COVERER LAB - CHEM ISTRY ORDERABLES [facility] ACCOUNT BILL [address] [place] [address] * VITAMIN B12 (03/19/2022 11:01 AM BOARD SAW RUNNER) Vitamin B12 383 232 - 1,245 pg/mL [facility] ACCOUNT BILL Comment:FASTING Blood BLOOD SPECIMEN / Unknown 03/19/2022 11:01 AM BOARD SAW RUNNER 03/19/2022 Narrative Resulting Agency Comment Lab Testing performed at: [facility] [address] [facility] [phone] Kelly Dunn TECHNOLOGY SALES CONSULTANT-CELL COVERER LAB - CHEM ISTRY ORDERABLES Performing Organization Address City/[facility] Co de Phone Number [facility] ACCOUNT BILL [address] [place] [address] * (ABNORMAL) VITAMIN B12 FOLATE PANEL (03/19/2022 11:01 AM BOARD SAW RUNNER) Vitamin B12 336 232 - 1,245 pg/mL [facility] ACCOUNT BILL Folate 2.9(L) >3.0 ng/mL [facility] ACCOUNT BILL Comment: A serum folate concentration of less than 3.1 ng/mL is considered to represent clinical deficiency. FASTING Blood BLOOD SPECIMEN / Unknown 03/19/2022 11:01 AM BOARD SAW RUNNER 03/19/2022 Narrative Resulting Agency Comment Lab Testing performed at: [facility] [address] [facility] [phone] Kelly Dunn TECHNOLOGY SALES CONSULTANT-CELL COVERER LAB - CHEM ISTRY ORDERABLES Performing Organization Address City/[facility]/ZIP Co de Phone Number [facility] ACCOUNT BILL [address] [place] [address] * AUDIOLOGY/TYMPANOMETRY ORDER (03/09/2021 3:35 PM BOARD SAW RUNNER) Natalie Romerodamon Tierney AUDIOLOGY SERVICES ORDERABLES * [...] (12/26/2014) Scanned Document SCANNING ONLY Care Teams Music Industry Internship Relationship Specialty Start Date End Date June Waldron MD [address] [facility] [address] [place] [phone] PCP - General Internal Medicine 07/30/22 Brando Maya MD [address] [facility] [address] [place] [address] Cardiovascular Disease 07/01/20 Van Sosa MD [address] [facility] [address] [place] [address] Electrophysiology 07/14/20 Alexus Kirkland MD [address] [facility] [address] [place] [address] Obstetrics and Gynecology 07/14/20 Zuri García [place] [address] [place] [address] Referring Physician Neurology 06/20/23 Merlin Garibay MD [address] [facility] [address] [place] [address] Neurological Surgery 06/20/23
--- OUTSIDE RECORDS SUMMARY | 2024-05-13 15:21 | XMS_ITS | Referral Summary ---
Author Organization [facility] Address [address] [place] [address] Care Team Providers Care Oracle Dba Name Role Phone Brando Maya MD Unavailable [phone] June Waldron MD Primary Care Provider + Merlin Garibay MD Unavailable [phone] Jonna Schmitt OD Unavailable [phone] Adelaide Davies MD Unavailable Van Sosa MD Unavailable [phone] Suresh Lynn NP Unavailable [phone] Encounters Date Type Department Care Team Description 04/05/2024 Telephone [facility] Ophthalmology [address] [facility] [address] [place] [phone] Zuri García MD 03/29/2024 Telephone [facility] Ophthalmology [address] [facility] 6th [place] [address] James Mota MD PhD 03/28/2024 Telephone [facility] Ophthalmology [address] [facility] 2nd Floor, [address] [place] [address] Zuri García MD 03/27/2024 Telephone [facility] Ophthalmology [address] [place] [address] 1st [place] [address] Zuri García MD 03/27/2024 Telephone [facility] ([facility]) - [facility] ENT [address] 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; 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; Idiopathic intracranial hypertension; S/P PATIENTS TRANSPORTER shunt; Rhinorrhea; Otorrhea, unspecified laterality 03/23/2024 Telephone [facility] Ophthalmology [facility] [place] [address] Zuri García MD Med Management 03/13/2024 Orders Only [facility] Ophthalmology [address] [place] [phone] Zuri García MD Papilledema due to raised [...] 02/11/2023 Assessment & Plan (02/12/2023 11:45 AM FABRICATOR SPECIAL ITEMS): Patient presented with headache and L sided vision loss in the setting of idiopathic intracranial Htn with PATIENTS TRANSPORTER shunt (11/27/22), right eye blindness. Initially code [...] prior - Follow-up closely with NSGY at [facility] for potential revision of PATIENTS TRANSPORTER shunt - LP with opening pressure 26. CSF with protein 54, nucs 10, glucose 56. Stain with no PMNs, no organisms. - symptoms resolved following LP Vision loss 01/22/2023 Chest pain 10/12/2020 Assessment & Plan (10/12/2020 12:49 PM CDT): Sustained episode of tachycardia longer than baseline episode Pt currently comfortable without any CP Bipolar 1 disorder 10/12/2020 Assessment & Plan (02/12/2023 11:39 AM FABRICATOR SPECIAL ITEMS): Controlled - Continue home medications: Olanzapine , Lorazepam, [place], Duloxetine Assessment & Plan (10/12/2020 11:13 AM CDT): [place] ER 450 mg Arrhythmia 10/12/2020 Assessment & [...] on file Legal Sex Female 10:58 AM FABRICATOR SPECIAL ITEMS Gender Identity Not on file Sexual Orientation Not on file Last Filed Vital Signs Vital Sign Reading Time Taken Comments Blood Pressure 133/90 02/12/2023 7:57 AM FABRICATOR SPECIAL ITEMS Pulse 91 02/12/2023 7:57 AM FABRICATOR SPECIAL ITEMS Temperature 36.6 C (97.9 F) 02/12/2023 7:57 AM FABRICATOR SPECIAL ITEMS Respiratory Rate 18 02/12/2023 7:57 AM FABRICATOR SPECIAL ITEMS Oxygen Saturation 100% 02/12/2023 7:57 AM FABRICATOR SPECIAL ITEMS Inhaled Oxygen Concentration - - Weight 102 kg (224 lb 12.8 oz) 02/11/2023 10:10 AM FABRICATOR SPECIAL ITEMS Height 162.6 cm (5' 4.02 ) 02/11/2023 10:[address] Body Mass Index 38.57 02/11/2023 10:10 AM FABRICATOR SPECIAL ITEMS Plan of Treatment Not on file Medical Devices Implanted Type Area Carpet Cutter Device Identifier Shelf Expiration Date Model / Serial / Lot Implantable Loop Recorder St Hugo Implantable Loop Recorder Chest Stratta Valve Brain Procedures Procedure Name Priority Date/Time Associated Diagnosis Comments OCT, OPTIC NERVE - OU - BOTH EYES Routine 03/26/2024 2:25 PM FABRICATOR SPECIAL ITEMS Idiopathic intracranial hypertension 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 Average RNFL thickness 55 micrometers. Left Eye Reliability was good. Average RNFL thickness 52 micrometers. Notes RNFL thinning OU (Performed on Zeiss Cirrus OCT) Zuri García MD OPHTH TOMOGRAPHY Final Resu lt * OCT, Retina - OU - Both Eyes (03/26/2024 2:25 PM FABRICATOR SPECIAL ITEMS) Anatomical Region Laterality Modality Head Other Narrative 03/26/2024 3:51 PM FABRICATOR SPECIAL ITEMS Right Eye Findings include normal observations. Left Eye Findings include normal observations. Notes Diffuse ganglion cell complex thinning OU, with mean GCC thickness: 44 microns OD, 50 microns OS (on Zeiss Cirrus OCT) Zuri García MD OPHTH TOMOGRAPHY Final Resu lt from Last 3 Months Insurance [employer] OOS [employer] OOS [employer] [facility] [place] Advance Directives For more information, please contact: [phone] * Full Code (Latest Code Status on File) Date Activated Date Inactivated Comments 02/11/2023 10:47 AM 02/12/2023 7:36 PM * Full Code Date Activated Date Inactivated Comments 01/22/2023 11:26 PM 01/26/2023 7:34 PM Care Teams Oracle Dba Relationship Specialty Start Date End Date June Waldron MD [address] [place] [address] PCP - General 10/19/21 Brando Maya MD [address] [place] [address] Referring Physician Cardiovascular Disease 10/13/20 Merlin Garibay MD [address] [place] [address] Surgeon Neurosurgery 12/11/22 Jonna Schmitt OD [address] [place] [address] Primary Eye Care Provider Optometry 12/11/22 Adelaide Davies MD [address] [place] [address] Surgeon Ophthalmic Plastic and Reconstructive Surgery 12/24/22 Van Sosa MD [address] [facility] [address] [place] [address] Mortgage Loan Funder Cardiology 12/28/22 Suresh Lynn NP [address] [facility], [facility] [address] [place] [address] Nurse Practitioner Psychiatry 04/05/23
--- OUTSIDE RECORDS SUMMARY | 2024-05-13 15:21 | XMS_ITS | Referral Summary ---
Author Organization [facility] Address [address] [facility] [place] [address] Care Team Providers Care Emery Wheel Worker Name Role Phone Brando Maya MD Unavailable [phone] Van Sosa MD Unavailable [phone] Alexus Kirkland MD Unavailable Unavailable June Waldron MD Primary Care Provider [phone] Zuri García MD Unavailable [phone] Merlin Garibay MD Unavailable [phone] Source Comments [facility],non-owned Affiliates and Associated Physician Practices is amultiple site organization consisting of ambulatory clinics and hospital sitesin [place], [place], [place] and [place]. This disclosure is being madepursuant to the Care Everywhere program and may not contain all information available regarding this patient. Last updated 17.[facility] Encounters Date Type Department Care Team Description 05/01/2024 11:45 AM ACCOUNT RELATIONSHIP MANAGER Office Visit [facility] [address] [place] [address] [address] [place] [address] Brando Maya MD Paroxysmal atrial fibrillation (HCC) (Primary Dx); PAF (paroxysmal atrial fibrillation) (HCC); Essential hypertension 04/17/2024 Refill [facility] [address] [place] [address] [address] [place] [address] Denise Cardona RN ALLERGY-ENGINEER RF DEPLOYMENT Refill Request 04/10/2024 Telephone [facility] - Internal Medicine [address] [place] [address] [address] [place] [phone] June Waldron MD Medication Problem 03/30/2024 Refill [facility] Vascular [address] [place] [address] Denise Cardona RN ALLERGY-ENGINEER RF DEPLOYMENT Refill Request; Scheduling 03/01/2024 Telephone [facility] - Internal Medicine [address] [place] [address] [address] [place] [phone] June Waldron MD Scheduling from Last 3 [...] Active vitamin D, ergocalciferol, (Drisdol) 1.25 MG (55036 UT) capsuleIndication s:Vitamin D deficiency Take 1 capsule by mouth once a week 12 capsule 4 Active haloperidol (Haldol) 5 MG tablet TAKE 1 TABLET BY MOUTH TWICE DAILY FOR 9 DAYS 4 Active fluticasone propionate (Flonase) 50 MCG/ACT nasal spray [place] 2 (two) sprays into each nostril once [...] increased intracrani al pressure 12/16/2022 12/26/2022 S/P FISH HATCHERY MANAGER shunt 12/12/2022 06/20/2023 Visual field defect of [...] 2 Overview (12/25/2020): Last Assessment & Plan: [place] ER 450 mg Paroxysmal atrial fibrillation 07/01/2020 05/01/2024 CAD in [place] artery 07/01/2020 022 Constipation 10/08/2013 01/22/2021 Immunizations [...] Comments Blood Pressure 120/72 05/01/2024 11:41 AM ACCOUNT RELATIONSHIP MANAGER Pulse 84 05/01/2024 11:41 AM ACCOUNT RELATIONSHIP MANAGER Temperature 36.1 C (96.9 F) 06/20/2023 12:45 PM CDT Respiratory Rate - - Oxygen Saturation 99% 06/20/2023 12: 45 PM CDT Inhaled Oxygen Concentration - - Weight 108.1 kg (238 lb 6.4 oz) 025 11:41 AM ACCOUNT RELATIONSHIP MANAGER Height 165.1 cm (5' 5 ) 06/20/2023 12:4 5 PM CDT Body Mass Index 39.67 06/20/2023 12:45 PM CDT Plan of Treatment Upcoming Encounters Date Type Department Care Team (Late st Contact Info) Description 05/28/2024 11:00 AM CDT Office Visit [facility] - Internal Medicine [address] [facility] [address] [place] [address] Tiera Monets, RN ALLERGY-ENGINEER RF DEPLOYMENT [address] [address] 05/01/2025 11:30 AM ACCOUNT RELATIONSHIP MANAGER Office Visit [facility] [address] [facility] [address] [place], [place] [id number] Brando Maya MD [address] [place] [address] [facility] [address] [place], [place] [id number] Procedures Procedure Name Priority Date/Time Associated Diagnosis Comments EKG 12-LEAD Routine 05/01/2024 1:03 PM ACCOUNT RELATIONSHIP MANAGER Paroxysmal atrial fibrillation (HCC) from Last 3 Months Care Teams Emery Wheel Worker Relationship Specialty Start Date End Date June Waldron MD [address] [facility] [address] [place] [address] PCP - General Internal Medicine 07/30/22 Brando Maya MD [address] [facility] [address] [place] [address] Cardiovascular Disease 07/01/20 Van Sosa MD [address] [facility] [address] [place] [address] Electrophysiology 07/14/20 Alexus Kirkland MD [address] [facility] [address] [place] [address] Obstetrics and Gynecology 07/14/20 Zuri García MD [address] [place] [address] Referring Physician Neurology 06/20/23 Merlin Garibay MD [address] [facility] [address] [place] [address] Neurological Surgery 06/20/23
--- OUTSIDE RECORDS SUMMARY | 2024-05-13 15:21 | XMS_ITS | Clinical Summary ---
Author Organization [facility] Address [address] [place] [address] Care Team Providers Care Supervisory Investigative Specialist Name Role Phone Brando Maya MD Unavailable June Waldron MD Primary Care Provider + Merlin Garibay MD Unavailable Jonna Schmitt OD Unavailable Adelaide Davies MD Unavailable Van Sosa MD Unavailable [phone] Suresh Lynn NP Unavailable Allergies Active Allergy [...] 02/11/2023 Assessment & Plan (02/12/2023 11:45 AM DATA COMMUNICATIONS SOFTWARE CONSULTANT): Patient presented with headache and L sided vision loss in the setting of idiopathic intracranial Htn with INSTRUCTOR DANCING shunt (11/27/22), right eye blindness. Initially code [...] prior - Follow-up closely with NSGY at [facility] for potential revision of INSTRUCTOR DANCING shunt - LP with opening pressure 26. CSF with protein 54, nucs 10, glucose 56. Stain with no PMNs, no organisms. - symptoms resolved following LP Vision loss 01/22/2023 Chest pain 10/12/2020 Assessment & Plan (10/12/2020 12:49 PM CDT): Sustained episode of tachycardia longer than baseline episode Pt currently comfortable without any CP Bipolar 1 disorder 10/12/2020 Assessment & Plan (02/12/2023 11:39 AM DATA COMMUNICATIONS SOFTWARE CONSULTANT): Controlled - Continue home medications: Olanzapine , Lorazepam, [place], Duloxetine Assessment & Plan (10/12/2020 11:13 AM CDT): [place] ER 450 mg Arrhythmia 10/12/2020 Assessment & [...] Care Team Description 04/05/2024 Telephone [facility] Ophthalmology [facility] [address] [place] [address] Zuri García MD 03/29/2024 Telephone [facility] Ophthalmology [address] [place] [phone] James Mota MD PhD 03/28/2024 Telephone [facility] Ophthalmology [address] [facility] [address] [place] [address] Zuri García MD 03/27/2024 Telephone [facility] Ophthalmology [address] [place] [address] 1st [place] [address] Zuri García MD 03/27/2024 Telephone [facility] Advanced [facility] - [address] Advanced Medicine 11th [place] [address] [place] [address] Dinah Harris, 03/26/2024 2:30 PM DATA COMMUNICATIONS SOFTWARE CONSULTANT Office Visit 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 Ophthalmology [address] [place] [phone] 03/26/2024 Telephone [facility] Ophthalmology [address] [place] [phone] Zuri García MD 03/23/2024 Telephone [facility] Ophthalmology [facility] [place] [address] Zuri García MD Med Management 03/13/2024 Orders Only 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; Optic atrophy of both eyes from Last 3 Months Immunizations Immunization Administration Dates Next Due Tdap 10/19/2021 Surgical History Surgery Date Site/Laterality Comments MA APPENDECTOMY Appendectomy - (Added by Conv) LUMBAR [...] on file Legal Sex Female 10:58 AM DATA COMMUNICATIONS SOFTWARE CONSULTANT Gender Identity Not on file Sexual Orientation Not on file Obstetrics History Last Filed Vital Signs Vital Sign Reading Time Taken Comments Blood Pressure 133/90 02/12/2023 7:57 AM DATA COMMUNICATIONS SOFTWARE CONSULTANT Pulse 91 02/12/2023 7:57 AM DATA COMMUNICATIONS SOFTWARE CONSULTANT Temperature 36.6 C (97.9 F) 02/12/2023 7:57 AM DATA COMMUNICATIONS SOFTWARE CONSULTANT Respiratory Rate 18 02/12/2023 7:57 AM DATA COMMUNICATIONS SOFTWARE CONSULTANT Oxygen Saturation 100% 02/12/2023 7:57 AM DATA COMMUNICATIONS SOFTWARE CONSULTANT Inhaled Oxygen Concentration - - Weight 102 kg (224 lb 12.8 oz) 02/11/2023 10:10 AM DATA COMMUNICATIONS SOFTWARE CONSULTANT Height 162.6 cm (5' 4.02 ) 02/11/2023 10:[address] Body Mass Index 38.57 02/11/2023 10:10 AM DATA COMMUNICATIONS SOFTWARE CONSULTANT Plan of Treatment Health Maintenance Due Date [...] 08/15/2008, 008 Medical Devices Implanted Type Area Journeyman Machinist Device Identifier Shelf Expiration Date Model / Serial / Lot Implantable Loop Recorder St Hugo Implantable Loop Recorder Chest Stratta Valve Brain Procedures Procedure Name Priority Date/Time Associated Diagnosis Comments OCT, OPTIC NERVE - OU - BOTH EYES Routine 03/26/2024 2:25 PM DATA COMMUNICATIONS SOFTWARE CONSULTANT Idiopathic intracranial hypertension 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 Average RNFL thickness 55 micrometers. Left Eye Reliability was good. Average RNFL thickness 52 micrometers. Notes RNFL thinning OU (Performed on Zeiss Cirrus OCT) Zuri García MD OPHTH TOMOGRAPHY Final Resu lt * OCT, Retina - OU - Both Eyes (03/26/2024 2:25 PM DATA COMMUNICATIONS SOFTWARE CONSULTANT) Anatomical Region Laterality Modality Head Other Narrative 03/26/2024 3:51 PM DATA COMMUNICATIONS SOFTWARE CONSULTANT Right Eye Findings include normal observations. Left Eye Findings include normal observations. Notes Diffuse ganglion cell complex thinning OU, with mean GCC thickness: 44 microns OD, 50 microns OS (on Zeiss Cirrus OCT) Zuri García MD OPHTH TOMOGRAPHY Final Resu lt from Last 3 Months Insurance [employer] OOS [employer] OOS [employer] [facility] [place] Advance Directives For more information, please contact: [phone] * Full Code (Latest Code Status on File) Date Activated Date Inactivated Comments 02/11/2023 10:47 AM 02/12/2023 7:36 PM * Full Code Date Activated Date Inactivated Comments 01/22/2023 11:26 PM 01/26/2023 7:34 PM Care Teams Supervisory Investigative Specialist Relationship Specialty Start Date End Date June Waldron MD [address] [place] [address] PCP - General 10/19/21 Brando Maya MD [address] [place] [address] Referring Physician Cardiovascular Disease 10/13/20 Merlin Garibay MD [address] [place] [address] Surgeon Neurosurgery 12/11/22 Jonna Schmitt OD [address] [place] [address] Primary Eye Care Provider Optometry 12/11/22 Adelaide Davies MD [address] [place] [address] Surgeon Ophthalmic Plastic and Reconstructive Surgery 12/24/22 Van Sosa MD [address] [facility] [address] [place] [address] Manager Field Service Cardiology 12/28/22 Suresh Lynn NP [address] [facility], [facility] 122 [place] [address] Nurse Practitioner Psychiatry 04/05/23
--- OUTSIDE RECORDS SUMMARY | 2024-05-13 15:21 | XMS_ITS | Clinical Summary ---
Author Organization [facility] TestObject Address [address] [facility] [facility] [place] [address] Care Team Providers Care Accounts Receivable Processor Name Role Phone Brando Maya MD Unavailable [phone] Van Sosa MD Unavailable [phone] Alexus Kirkland MD Unavailable Unavailable June Waldron MD Primary Care Provider [phone] Zuri García MD Unavailable [phone] Merlin Garibay MD Unavailable [phone] Source Comments [facility],non-owned Affiliates and Associated Physician Practices is amultiple site organization consisting of ambulatory clinics and hospital sitesin [place], [place], [place] and [place]. This disclosure is being madepursuant to the Care Everywhere program and may not contain all information available regarding this patient. Last updated 17.[facility] TestObject Allergies Active Allergy Reactions Criticality Noted Date [...] Active vitamin D, ergocalciferol, (Drisdol) 1.25 MG (39807 UT) capsuleIndication s:Vitamin D deficiency Take 1 capsule by mouth once a week 12 capsule 4 Active haloperidol (Haldol) 5 MG tablet TAKE 1 TABLET BY MOUTH TWICE DAILY FOR 9 DAYS 4 Active fluticasone propionate (Flonase) 50 MCG/ACT nasal spray [place] 2 (two) sprays into each nostril once [...] increased intracrani al pressure 12/16/2022 12/26/2022 S/P POLL WATCHER shunt 12/12/2022 06/20/2023 Visual field defect of [...] 10/12/2020 Overview (12/25/2020): Last Assessment & Plan: [facility] 450 mg Paroxysmal atrial fibrillation 07/01/2020 05/01/2024 CAD in yuhaaviatam artery 07/01/2020 022 Constipation 10/08/2013 01/22/2021 Encounters Date Type Department Care Team Description 05/01/2024 11:45 AM PATIENT CARE COORDINATOR Office Visit [facility] Vascular [address] [place] [address] Brando Maya MD Paroxysmal atrial fibrillation (HCC) (Primary Dx); PAF (paroxysmal atrial fibrillation) (HCC); Essential hypertension 04/17/2024 Refill [facility] [address] [place] [address] Denise Cardona [employer] KERNEL DEVELOPER-FIRE PROTECTION FABRICATOR Refill Request 04/10/2024 Telephone [facility] - Internal Medicine [address] [place] [address] [address] [place] [phone] June Waldron MD Medication Problem 03/30/2024 Refill [facility] [address] [place] [address] Denise Cardona, LINUX KERNEL DEVELOPER-FIRE PROTECTION FABRICATOR Refill Request; Scheduling 03/01/2024 Telephone [facility] - Internal Medicine [address] [phone] June Waldron MD Scheduling from [...] Comments Blood Pressure 120/72 05/01/2024 11:41 AM PATIENT CARE COORDINATOR Pulse 84 05/01/2024 11:41 AM PATIENT CARE COORDINATOR Temperature 36.1 C (96.9 F) 06/20/2023 12:45 PM CDT Respiratory Rate - - Oxygen Saturation 99% 06/20/2023 12: 45 PM CDT Inhaled Oxygen Concentration - - Weight 108.1 kg (238 lb 6.4 oz) 025 11:41 AM PATIENT CARE COORDINATOR Height 165.1 cm (5' 5 ) 06/20/2023 12:4 5 PM CDT Body Mass Index 39.67 06/20/2023 12:45 PM CDT Plan of Treatment Upcoming Encounters Date Type Department Care Team (Late st Contact Info) Description 05/28/2024 11:00 AM CDT Office Visit [facility] - Internal Medicine [address] [facility] [address] [place] [phone] Tiera Montes, LIN[employer] K[employer]EL DEVELOPER-FIRE PROTECTION FABRICATOR [address] [place] [phone] 05/01/2025 11:30 AM PATIENT CARE COORDINATOR Office Visit [facility] [address] [facility] [facility] [address] [place] [address] Brando Maya MD [address] [place] [address] [facility] [address] [place] [address] Health Maintenance Due Date Last Done Comments [...] Comments EKG 12-LEAD Routine 05/01/2024 1:03 PM PATIENT CARE COORDINATOR Paroxysmal atrial fibrillation (HCC) from Last 3 Months Care Teams Accounts Receivable Processor Relationship Specialty Start Date End Date June Waldron MD [address] [place] [phone] PCP - General Internal Medicine 07/30/22 Brando Maya MD [address] [facility] [address] [place] [address] Cardiovascular Disease 07/01/20 Van Sosa MD [employer] [place] [address] [place] [address] Electrophysiology 07/14/20 Alexus Kirkland MD [employer] [place] [address] [place] [address] Obstetrics and Gynecology 07/14/20 Zuri García MD [address] [place] [address] Referring Physician Neurology 06/20/23 Merlin Garibay MD [address] [facility] [address] [place] [address] Neurological Surgery 06/20/23
--- NOTE | 2024-05-13 15:47 | ED_ITS ---
HPI - General Adult General Chief complaint: Headache Stated complaint: devin DELGADO of idiopathic intracranial pressure Time Seen by Provider: 05/13/24 15:11 History of Present Illness HPI narrative: 33-year-old female presents emergency department for evaluation for headache and vision changes. Patient reports he does have idiopathic intracranial hypertension and has been at [facility] due to being kicked out her home. Patient states that she is typically on 500 mg of seizures all night b.i.d. but has been off of this for the 3 doses. 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 Related Data Home Medications ?Medication ?Instructions ?Recorded ?Confirmed ?Last Taken ?Type digoxin 125 mcg (0.125 mg) tablet 125 mcg PO DAILY 08/29/21 Unknown History diltiazem HCl 240 mg capsule,24 240 mg PO DAILY 08/29/21 Unknown History hr,extended release flecainide 50 mg tablet 50 mg PO Q12H 08/29/21 Unknown History lamotrigine 200 mg tablet 200 mg PO DAILY 08/29/21 Unknown History (Lamictal) lithium carbonate 600 mg capsule 600 mg PO BID 08/29/21 Unknown History olanzapine 20 mg tablet (Zyprexa) 25 mg PO DAILY 08/29/21 Unknown History prazosin 5 mg capsule 7 mg PO QPM 08/29/21 Unknown History Allergies Allergy/AdvReac Type Severity Reaction Status Date / Time hydromorphone (From Dilaudid) Allergy Anaphylaxis Verified 08/29/21 22:57 morphine Allergy Anaphylaxis Verified 08/29/21 22:57 Review of Systems Review of Systems: All systems reviewed & are unremarkable except as noted in HPI and below PMFSH Past Medical History Medical History (Updated 05/13/24 @ 18:38 by Austin Mueller MD) History of bipolar disorder History of coronary artery disease Social History Social History (Updated 08/30/21 @ 00:03 by Marie Melvin PA-C) Smoking status: Never smoker Exam Narrative: APPEARANCE: Well appearing, no pain, no distress, well-nourished. HEAD: normocephalic, atraumatic. EYES: PERRLA/EOMI, conjunctivae clear. NOSE: Normal no drainage EARS:TMS clear with good light reflex. THROAT: Pharynx clear, no exudate. NECK: Supple. No adenopathy, no masses. RESPIRATORY: Airway patent, respirations nonlabored. Clear to auscultation bilaterally, no rales, rhonchi, wheezing. CARDIOVASCULAR: Regular rate and rhythm without murmurs rubs or gallops. ABDOMINAL: Soft, nontender, nondistended, normal bowel sounds MUSCULOSKELETAL: Moves all extremities. Strength/ROM intact, No edema, No calf tenderness. NEURO: Alert. Cranial nerves II through XII intact. Good gait. Good coordination SKIN: Warm, dry. Normal Color PSYCHIATRIC: Normal affect/mood. Course Vital Signs Vital signs: Vital Signs Pulse Rate 73 05/13/24 15:30 Respiratory Rate 16 05/13/24 15:30 Blood Pressure 131/87 05/13/24 15:30 Pulse Oximetry 98 05/13/24 15:30 Temperature 99.0 F 05/13/24 15:40 Pulse Rate 83 05/13/24 18:45 Respiratory Rate 16 05/13/24 18:45 Blood Pressure 156/90 H 05/13/24 18:45 Pulse Oximetry 99 05/13/24 18:45 Medical Decision Making [facility] Narrative Medical decision making narrative: 33-year-old female presents emergency department for evaluation for physician headache. Patient was restarted on her acetazolamide. Patient had a CT scan that showed no acute intracranial abnormality. Patient was treated with a migraine cocktail and states she does feel improved at this time. Patient is requesting to be discharged back to her facility. Patient will be provided additional acetazolamide. Patient was also encouraged to follow up with her neurologist [facility] Differential Diagnosis Differential Diagnosis: Migraine, headache Vital Signs Vital Signs: Vital Signs Pulse Rate 73 05/13/24 15:30 Respiratory Rate 16 05/13/24 15:30 Blood Pressure 131/87 05/13/24 15:30 Pulse Oximetry 98 05/13/24 15:30 Temperature 99.0 F 05/13/24 15:40 Pulse Rate 83 05/13/24 18:45 Respiratory Rate 16 05/13/24 18:45 Blood Pressure 156/90 H 05/13/24 18:45 Pulse Oximetry 99 05/13/24 18:45 Imaging Data Radiologist's impression: Impressions Head CT 05/13/24 16:10 IMPRESSION: No acute intracranial process. Discharge Plan Discharge Clinical Impression: Headache Patient Disposition: Home, Self-Care Condition: Stable Instructions: Antibiotic Form, Acute Headache (ED) Additional Instructions: Have close follow-up with your neurologist at [facility]. Patient Language: Portuguese Prescriptions: New acetazolamide 250 mg tablet 500 mg PO BID 14 Days Qty: 56 0RF No Action lamotrigine [Lamictal] 200 mg Tablet 200 mg PO DAILY diltiazem HCl 240 mg Capsule,Extended Release 24 Hr 240 mg PO DAILY prazosin 5 mg Capsule 7 mg PO QPM lithium carbonate 600 mg Capsule 600 mg PO BID flecainide 50 mg Tablet 50 mg PO Q12H digoxin 125 mcg (0.125 mg) Tablet 125 mcg PO DAILY olanzapine [Zyprexa] 20 mg Tablet 25 mg PO DAILY Follow-up/Referrals: PHYSICIAN NOT ON STAFF,NONSTAFF [Primary Care Provider] -
[2024-05-13] MEDS: acetaZOLAMIDE TAB 250 MG TABLET 500 MG PO (16:50)
[2024-05-13] MEDS: KETOROLAC 15 MG/ML VIAL (*BKC) IV PUSH (17:42)
[2024-05-13] MEDS: PROCHLORPERAZINE EDISYLATE 10 MG/2 ML VIAL IV PUSH (17:45)
[2024-05-13] MEDS: diphenhydrAMINE HCl INJ 50 MG/ML VIAL 25 MG IV PUSH (17:51)
== END 2024-05-13 19:31 | disposition home or self-care (01) ==
PROVIDERS: Emergency Provider Emergency Medicine
DX: R51.9 Headache, unspecified (principal); G93.2 Benign intracranial hypertension; I25.10 Atherosclerotic heart disease of native coronary artery without angina pectoris; F31.9 Bipolar disorder, unspecified; Z79.899 Other long term (current) drug therapy
CPT/HCPCS: 70450; 96374; 96375; 99284; A9270; J0780; J1200; J1885